=== PATIENT | male | born 1965 | race Caucasian/White ===

== ENCOUNTER 2019-04-06 18:26 | Inpatient (IN) ==
[2019-04-06] MEDS ORDERED: NORMAL SALINE 1,000 ML IV ONE ×3 (18:59→23:26)
[2019-04-06] MEDS ORDERED: LORazepam 2 MG/ML DISP.SYRIN IV ONE ×3 (18:59→20:53)
--- NOTE | 2019-04-06 19:18 | ERNOTE ---
<Lionel Johnson - Last Filed: 04/06/19 19:24> Medical Problem HPI - Narrative Date of Service: 04/06/19 - General Chief Complaint: Nausea/Vomiting Time Seen by Provider: 04/06/19 18:50 Source: patient, family Exam Limitations: no limitations - Immun/Allergies/Home Medications Immunizations: IMMUNIZATION HX Immunizations Up to Date Yes History of Influenza Vaccine Yes Hx Pneumococcal Vaccination No Allergies/Adverse Reactions: Allergies azithromycin Allergy (Verified 02/24/19 15:35) Hives Home Medications: HOME MEDICATIONS Atorvastatin Calcium 40 mg PO DAILY 11/30/18 [Last Taken Unknown] Buspirone HCl 30 mg PO BID 11/30/18 [Last Taken Unknown] Diphenoxylate HCl/Atrop Sulf [Lomotil] 2.5 mg PO QID PRN #40 tab 11/30/18 [Last Taken Unknown] Fluticasone Propion/Salmeterol [Advair 500-50 Diskus] 1 puff INHALATION BID 11/30/18 [Last Taken Unknown] Fluticasone Propionate [Flonase] 1 spray NS DAILY 11/30/18 [Last Taken Unknown] Lisinopril [Prinivil] 10 mg PO DAILY 11/30/18 [Last Taken Unknown] Montelukast Sodium [Singulair] 10 mg PO HS 11/30/18 [Last Taken Unknown] Ondansetron [Zofran Odt] 4 mg PO Q6H PRN #20 tab 11/30/18 [Last Taken Unknown] Pantoprazole Sodium 40 mg PO HS 11/30/18 [Last Taken Unknown] traZODone HCL [Trazodone HCl] 400 mg PO HS 11/30/18 [Last Taken Unknown] - History of Present History Narrative: patient presents to ed with c/o alcohol withdrawal, long hx of alcoholism, was in care [facility] at [facility] on monday for fluids and detox, left [facility], relates he left [facility]. haddad not had drink since monday Timing: constant, getting worse Severity: moderate Modifying Factors - (Improves): Present: other - nothing Modifying Factors - (Worsens): Present: other - nothing Review of Systems - Review of Systems Constitutional: Present: See HPI, weakness, fatigue, malaise EYE: Present: no symptoms reported ENT: Present: no symptoms reported Respiratory: Present: no symptoms reported Cardiology: Present: no symptoms reported Gastrointestinal/Abdominal: Present: See HPI, nausea, vomiting, diarrhea, eating less, drinking less Genitourinary: Present: no symptoms reported Musculoskeletal: Present: no symptoms reported Skin: Present: no symptoms reported Neurological: Present: no symptoms reported Endocrine: Present: no symptoms reported Hematologic/Lymphatic: Present: no symptoms reported Psych: Present: no symptoms reported All Other Systems: All systems neg except as marked Medical History (Updated 03/27/19 @ 00:00 by ) Anxiety COPD (chronic obstructive pulmonary disease) Depression Foot fracture, right GERD (gastroesophageal reflux disease) Hypertension Rheumatoid arthritis Spontaneous pneumothorax Surgical History: Surgical History (Updated 11/30/18 @ 10:37 by Marilou Pace RN) History of appendectomy Family History: Family History (Updated 11/30/18 @ 10:38 by Marilou Pace RN) Mother Social History: (Last Updated 04/06/19 @ 18:44 by Alessia Delgadillo RN) Tobacco: Smoking Status: Current every day smoker Alcohol: Alcohol type: beer, hard liquor alcohol intake frequency: 3 or more drinks per day Substance Use: substance use type: does not use Physical Exam - Physical Exam General Appearance: Present: severe distress, anxious Head Exam: Present: normal inspection, no evidence of injury Eye Exam: Normal inspection: bilateral, PERRL: bilateral, EOMI: bilateral Ears, Nose, Throat: Present: normal ENT inspection, normal pharynx Neck: Present: normal inspection, nontender Respiratory: Present: no respiratory distress, normal breath sounds, no accessory muscle use, chest nontender, lungs clear Cardiovascular/Chest: Present: regular rate, rhythm, no murmur, normal peripheral pulses Gastrointestinal/Abdominal: Present: normal bowel sounds, nontender, nondistended, soft, no organomegaly Back Exam: Present: normal inspection, normal range of motion, no CVA tenderness, no vertebral tenderness Extremity Exam: Present: normal inspection, non-tender, normal range of motion, no edema Neurological Exam: Present: alert, oriented, normal mood/affect, no motor/sensory deficits Skin Exam: Present: normal color, warm/dry Lymphatic Exam: Present: no adenopathy Progress - Vital Signs Vital Signs: Vital Signs 04/06/19 18:31 Temperature 36.9 C Pulse Rate 121 H Respiratory Rate 18 Blood Pressure 153/100 H O2 Sat by Pulse Oximetry 95 - Progress/Reassessment Chief Complaint: Nausea/Vomiting - Transfer of Care Physician Sign Out: Lionel Johnson Receiving Physician: Lico Arredondo Expected Disposition: Admit Plan - Plan Plan: to be admitted Departure Clinical Impression: Alcohol abuse, Acute renal insufficiency Pancreatitis Qualifiers: Chronicity: acute Pancreatitis type: alcohol induced Acute pancreatitis compl ication: unspecified Qualified Code(s): K85.20 - Alcohol induced acute pancreatitis without necrosis or infection - Departure Disposition: Still a patient Condition: Stable Referrals: Ever Garcia DO [Primary Care Provider] - <Lico Arredondo - Last Filed: 04/06/19 21:03> Medical Problem HPI - Immun/Allergies/Home Medications Immunizations: IMMUNIZATION HX Immunizations Up to Date Yes History of Influenza Vaccine Yes Hx Pneumococcal Vaccination No Medical History (Updated 03/27/19 @ 00:00 by ) Anxiety COPD (chronic obstructive pulmonary disease) Depression Foot fracture, right GERD (gastroesophageal reflux disease) Hypertension Rheumatoid arthritis Spontaneous pneumothorax Surgical History: Surgical History (Updated 11/30/18 @ 10:37 by Marilou Pace RN) History of appendectomy Family History: Family History (Updated 11/30/18 @ 10:38 by Marilou Pace RN) Mother Social History: (Last Updated 04/06/19 @ 18:44 by Alessia Delgadillo RN) Tobacco: Smoking Status: Current every day smoker Alcohol: Alcohol type: beer, hard liquor alcohol intake frequency: 3 or more drinks per day Substance Use: substance use type: does not use Progress - Results and Orders Patient's Lab Results:: I have reviewed the patient's lab results. - Vital Signs Patient's Vital Signs:: I have reviewed the patient's vital signs. Vital Signs: Vital Signs 04/06/19 18:31 04/06/19 19:14 04/06/19 19:53 Temperature 36.9 C Pulse Rate 121 H 96 101 H Respiratory Rate 18 24 H 15 Blood Pressure 153/100 H 148/100 H 155/100 H O2 Sat by Pulse Oximetry 95 98 96 04/06/19 20:10 04/06/19 20:48 Temperature Pulse Rate 101 H 112 H Respiratory Rate 16 16 Blood Pressure 155/103 H 158/103 H O2 Sat by Pulse Oximetry 96 96 - X-Ray X-Ray #1 X-Ray: abdomen Interpretation: Interp. by me Plan - Plan Plan: I took over patient care at 7:30 PM. Patient was waiting on labs. His labs have returned with pancreatitis. He has transaminitis. He has become tachycardic and tremulous. He is been given 3 mg of Ativan. She has some mild acute renal insufficiency. Given a liter and a half of saline so far. Patient has acute pancreatitis, impending DTs, acute renal failure, alcohol withdrawal. Spoke with Dr. Rolo Shearer and will admit to the hospital. Put on CIWA protocol. No further tests at this time. Patient seems to be willing to try a detox
[2019-04-06 19:38] LABS: Hematocrit 35.7 % (42.0-52.0); Hemoglobin 12.4 gm/dL (13.5-18.0); Mean Cell Volume 101.7 fl (78-100); Mean Corpuscular Hemoglobin 35.3 pg (27-31); Mean Corpuscular Hgb Conc 34.7 g/dl (32-36); Mean Platelet Volume 10.4 fl (8-11.3); Neutrophil # 3.6 K/mm3 (1.3-6.0); Neutrophil % 76.7 % (42-75.0); Platelet Count 57 K/mm3 (150-450); Red Blood Count 3.51 M/mm3 (4.7-6.0); White Blood Count 4.7 K/mm3 (4.0-10.5)
[2019-04-06 19:44] LABS: Anion Gap 31.7 mmol/L (6.8-13.8); BUN/Creatinine Ratio 20.5 (9.0-21.6); Bilirubin, Total 1.4 mg/dL (0.0-1.1); Ca. Corrected For Albumin 8.1 mg/dL (8.4-10.2); Calcium * 8.4 mg/dL (7.9-10.9); Potassium 3.7 mmol/L (3.4-4.6); Total Protein 7.3 gm/dL (6.2-8.2)
[2019-04-06] MEDS: MULTIVIT INFUSN,ADULT 4,VIT K 10 ML, THIAMINE HCL 100 MG in NORMAL SALINE 1,000 ML IV SCH (19:49)
[2019-04-06] MEDS ORDERED: ONDANSETRON HCL/PF 2 MG/ML VIAL IV PRN (20:59)
[2019-04-06] MEDS ORDERED: MORPHINE SULFATE 2 MG/ML DISP.SYRIN IV PRN (21:00)
[2019-04-06] MEDS ORDERED: ENOXAPARIN SODIUM 40 MG/0.4 ML SYRG SC SCH (22:00)
--- NOTE | 2019-04-06 22:22 | HP ---
Chief Complaint - Chief Complaint Date of Service: 04/06/19 Time of Service: 22:21 Chief Complaint: I am drunk and my stomach hurts History of Present Illness: 53-year-old male with past medical history of anxiety disorder, COPD, depression, GERD, hypertension, and rheumatoid arthritis was evaluated in our ER due to signs and symptoms of alcohol intoxication versus alcohol withdrawal. Patient has an extensive 30+ year history of alcoholism and drinks up to 5 drinks per day of mostly vodka. He reports his last drink was 5 days ago, however his sister contradicts that and says he attempted to drink earlier today but has not been able to keep anything down. Patient was noted to be belligerent and not talking clearly, and also presented tremors indicating possible withdrawal from alcohol. However blood alcohol levels are elevated so it is possible that patient is currently intoxicated. Patient was seen at [facility] earlier this week for similar symptoms however all labs and imaging were negative for any concerning findings besides his chronic alcoholism according to his sister. He also had a reported fall on Monday and his home falling onto his left side and injuring his left flank. Medical History (Updated 04/06/19 @ 22:46 by Angelita Figueroa MD) Anxiety COPD (chronic obstructive pulmonary disease) Depression Foot fracture, right GERD (gastroesophageal reflux disease) Hypertension Rheumatoid arthritis Spontaneous pneumothorax Surgical History: Surgical History (Updated 04/06/19 @ 22:22 by Angelita Figueroa MD) History of appendectomy Family History: Family History (Updated 11/30/18 @ 10:38 by Marilou Pace RN) Mother Social History: (Last Updated 04/06/19 @ 21:57 by Cyndi Jack RN) Social History: Marital status: Single lives independently: No household members: family current occupational status: unemployed Tobacco: Smoking Status: Current every day smoker Alcohol: Alcohol type: beer, hard liquor alcohol intake frequency: 3 or more drinks per day Substance Use: substance use type: does not use Dietary Habits: well-balanced diet: daily or most days Keren/Yazdanism: keren/restorationism: Agnostic Peds Patient Hx - Developmental: No Pertinent Hx Peds Patient Hx - Medical: No Pertinent Hx Peds Patient Hx - Cardiac/Respiratory: No Pertinent Hx Peds Patient Hx - Surgical: No Surgical History Patient History - Cancer: No Hx of Cancer Review Of Systems (GEN) - Review of Systems Generalized/Overall Review: Present: Diaphoresis EENTM: Present: No Symptoms Reported Respiratory: Present: Other - Persistent hiccups Cardiac: Present: No Symptoms Reported Abdominal: Present: Nausea, Vomiting, Abdominal Pain Genitourinary: Present: No Symptoms Reported Musculoskeletal: Present: Joint Pain - Bilateral knee pain due to rheumatoid arthritis Neurological: Present: Anxiety, Tremors, Weakness Skin: Present: No Symptoms Reported Endocrine: Present: No Symptoms Reported Immunizations: IMMUNIZATION HX Immunizations Up to Date Yes History of Influenza Vaccine Yes Hx Pneumococcal Vaccination No Allergies/Adverse Reactions: Allergies Allergy/AdvReac Type Severity Reaction Status Date / Time azithromycin Allergy Hives Verified 02/24/19 15:35 Home Medications: HOME MEDICATIONS Atorvastatin Calcium 40 mg PO DAILY 11/30/18 [Last Taken Unknown] Buspirone HCl 30 mg PO BID 11/30/18 [Last Taken Unknown] Diphenoxylate HCl/Atrop Sulf [Lomotil] 2.5 mg PO QID PRN #40 tab 11/30/18 [Last Taken Unknown] Fluticasone Propion/Salmeterol [Advair 500-50 Diskus] 1 puff INHALATION BID 11/30/18 [Last Taken Unknown] Fluticasone Propionate [Flonase] 1 spray NS DAILY 11/30/18 [Last Taken Unknown] Lisinopril [Prinivil] 10 mg PO DAILY 11/30/18 [Last Taken Unknown] Montelukast Sodium [Singulair] 10 mg PO HS 11/30/18 [Last Taken Unknown] Ondansetron [Zofran Odt] 4 mg PO Q6H PRN #20 tab 11/30/18 [Last Taken Unknown] Pantoprazole Sodium 40 mg PO HS 11/30/18 [Last Taken Unknown] traZODone HCL [Trazodone HCl] 400 mg PO HS 11/30/18 [Last Taken Unknown] Exam - Exam Vital Signs: Vital Signs - Last Taken Temp 36.9 C 04/06/19 18:31 Pulse 114 H 04/06/19 21:14 Resp 19 04/06/19 21:14 BP 167/108 H 04/06/19 21:14 Pulse Ox 96 04/06/19 21:14 Constitutional: Present: Alert, Cooperative, Well developed, No distress, Lethargic, Looks Older than stated age ENT Exam: Present: normal ENT inspection, hearing grossly normal, pharynx normal, TMs normal Eye Exam: bilateral eye: normal inspection, PERRL, EOMI Neck: Present: non-tender, full range of motion, supple, normal inspection, trachea midline Back Exam: Present: normal inspection, no CVA tenderness, no vertebral tenderness, other - Small resolving hematoma on left upper back/left flank Respiratory: Present: chest non-tender, lungs clear, normal breath sounds, no respiratory distress, no accessory muscle use Cardiovascular/Chest: Present: normal peripheral pulses, regular rate, rhythm, no chest tenderness, no edema, no gallop, no JVD, no murmur, no rub Peripheral Pulses: carotid (R): 3+, carotid (L): 3+, femoral (R): 3+, femoral (L): 3+, dorsalis-pedis (R): 3+, dorsalis-pedis (L): 3+ Abdomen: Present: Normal bowel sounds, soft, nondistended, no masses, tender - Diffuse tenderness on palpation, rebound tenderness /Rectal: Present: Exam deferred Extremity: Present: normal range of motion, non-tender, normal inspection, no pedal edema, no calf tenderness, normal capillary refill Skin Exam: Present: normal color, warm/dry, no cyanosis Lymphatic: Present: no adenopathy Neurologic: Present: no motor/sensory deficits, alert, depressed affect, disoriented x 3 Appearance: Present: disheveled, impaired insight, impaired recent memory, impaired remote memory Eye contact: Present: cooperative, good eye contact, normal speech Thoughts: Present: auditory hallucinations, tactile hallucinations, visual hallucinations Diagnostic Studies: Abnormal Lab Results 04/06/19 04/06/19 Range/Units 19:30 19:30 RBC 3.51 L (4.7-6.0) M/mm3 Hgb 12.4 L (13.5-18.0) gm/dL Hct 35.7 L (42.0-52.0) % MCV 101.7 H (78-100) fl MCH 35.3 H (27-31) pg RDW 15.0 H (11.5-14.0) % Plt Count 57 L (150-450) K/mm3 Neutrophils % 76.7 H (42-75.0) % Lymphocytes % 10.7 L (20-51) % Monocytes % 12.2 H (0.0-9) % Lymphocytes # 0.50 L (1.5-3.5) k/mm3 Chloride 95 L (97-106) mmol/L Carbon Dioxide 18.0 L (24-32.6) mmol/L Anion Gap 31.7 H (6.8-13.8) mmol/L BUN 38 H (6-23) mg/dL Creatinine 1.85 H (0.4-1.4) mg/dL Est GFR (Non-Af Amer) 41 L (60-130) mL/min Calcium Adj for Albumin 8.1 L (8.4-10.2) mg/dL Total Bilirubin 1.4 H (0.0-1.1) mg/dL AST 237 H (0-48) U/L ALT 119 H (19-67) U/L Amylase 506 H (25-115) U/L Lipase 7892 H (73-393) U/L Ethyl Alcohol 23.0 H (0.0-10.0) mg/dL Laboratory Results WBC 4.7 K/mm3 (4.0-10.5) 04/06/19 19:30 RBC 3.51 M/mm3 (4.7-6.0) L 04/06/19 19:30 Hgb 12.4 gm/dL (13.5-18.0) L 04/06/19 19:30 Hct 35.7 % (42.0-52.0) L 04/06/19 19:30 MCV 101.7 fl (78-100) H 04/06/19 19:30 MCH 35.3 pg (27-31) H 04/06/19 19:30 MCHC 34.7 g/dl (32-36) 04/06/19 19:30 RDW 15.0 % (11.5-14.0) H 04/06/19 19:30 Plt Count 57 K/mm3 (150-450) L 04/06/19 19:30 MPV 10.4 fl (8-11.3) 04/06/19 19:30 Immature Gran % (Auto) 0.20 % (0.001-0.429) 04/06/19 19:30 Immature Gran # (Auto) 0.01 K/mm3 (0.000-0.0310) 04/06/19 19:30 76.7 % (42-75.0) H 04/06/19 19:30 10.7 % (20-51) L 04/06/19 19:30 12.2 % (0.0-9) H 04/06/19 19:30 0.0 % (0.0-3.0) 04/06/19 19:30 0.2 % (0.0-1.0) 04/06/19 19:30 Nucleated RBC % 0.0 k/mm3 (0-1) 04/06/19 19:30 3.6 K/mm3 (1.3-6.0) 04/06/19 19:30 0.50 k/mm3 (1.5-3.5) L 04/06/19 19:30 0.6 k/mm3 (0.0-1.0) 04/06/19 19:30 0.0 k/mm3 (0.0-0.7) 04/06/19 19:30 Absolute Basophils 0.0 k/mm3 (0.0-0.1) 04/06/19 19:30 Sodium 141 mmol/L (132-142) 04/06/19 19:30 141 mmol/L (130-142) 04/06/19 19:30 Potassium 3.7 mmol/L (3.4-4.6) 04/06/19 19:30 Chloride 95 mmol/L (97-106) L 04/06/19 19:30 Carbon Dioxide 18.0 mmol/L (24-32.6) L 04/06/19 19:30 31.7 mmol/L (6.8-13.8) H 04/06/19 19:30 BUN 38 mg/dL (6-23) H 04/06/19 19:30 1.85 mg/dL (0.4-1.4) H 04/06/19 19:30 Est GFR (Non-Af Amer) 41 mL/min (60-130) L 04/06/19 19:30 20.5 (9.0-21.6) 04/06/19 19:30 86 mg/dL (70-110) 04/06/19 19:30 Calcium 8.4 mg/dL (7.9-10.9) 04/06/19 19:30 Calcium Adj for Albumin 8.1 mg/dL (8.4-10.2) L 04/06/19 19:30 Magnesium 1.7 mg/dL (1.2-2.8) 04/06/19 21:38 1.4 mg/dL (0.0-1.1) H 04/06/19 19:30 AST 237 U/L (0-48) H 04/06/19 19:30 ALT 119 U/L (19-67) H 04/06/19 19:30 87 U/L (50-170) 04/06/19 19:30 7.3 gm/dL (6.2-8.2) 04/06/19 19:30 4.0 gm/dl (3.4-5.0) 04/06/19:30 Amylase 506 U/L (25-115) H 04/06/19 19:30 7892 U/L (73-393) H 04/06/19 19:30 Ethyl Alcohol 23.0 mg/dL (0.0-10.0) H 04/06/19 19:30 Assessment/Plan - Narrative Narrative: Patient was evaluated and medical chart was reviewed and decision to admit for inpatient management on our medical surgical max was made. Patient was admitted with a diagnosis of alcohol withdrawal. We will manage him with alcohol withdrawal protocol which consist of anxiolytics to be used on a as needed basis, we have also placed him on telemetry monitoring as well as seizure precautions. As of yet patient has not presented fever however currently he is presenting tremors and is delirious. He seems to be presenting auditory and visual hallucinations so we will continue to monitor him closely. In the meantime we are treating patient with aggressive IV hydration to treat his pancreatitis that was diagnosed with elevated pancreatic enzymes as well as significant epigastric pain and tenderness. Patient was also found to have transaminitis with elevated liver enzymes indicating inflammation of the liver due to his excessive drinking. Patient has been in and out of rehab for multiple years for his alcoholism but has not been able to maintain his sobriety. He reports that his last drink was 5 days ago however his sister says that he did attempt to drink earlier today but threw everything up. Patient did have an elevated ethanol levels on labs done in the ER. Nevertheless precautions for alcohol withdrawal were placed, and patient was administered multiple doses of Ativan while in the ER. Now he is calm but tremulous has been placed on n.p.o., and has morphine and anxiolytics ordered on a as needed basis. We will continue to monitor him closely. Follow-up labs have been ordered for reevaluation in the morning. - Assessment/Plan (1) Alcohol abuse Problem: Chronic (2) Acute pancreatitis Problem: Acute (3) Alcohol withdrawal Problem: Acute Qualifiers: Complication of substance-induced condition: with delirium Qualified Code(s): F10.231 - Alcohol dependence with withdrawal delirium (4) Autonomic dysfunction Problem: Acute (5) Hypertension Problem: Acute Qualifiers: Hypertension type: other secondary hypertension Qualified Code(s): I15.8 - Other secondary hypertension (6) Tachycardia Problem: Acute (7) Alcoholism Problem: Chronic (8) Delirium due to another medical condition Problem: Acute (9) Acute kidney injury superimposed on CKD Problem: Chronic
[2019-04-07] MEDS: FAMOTIDINE 20 MG in DEXTROSE 5 % IN WATER 100 ML IV SCH ×6 (00:14→21:40)
[2019-04-07] MEDS: busPIRone HCL 5 MG TABLET PO SCH ×3 (00:24→21:38)
[2019-04-07] MEDS: traZODone HCL 50 MG TABLET PO SCH ×2 (00:27→21:37)
[2019-04-07] MEDS: traZODone HCL 150 MG TABLET PO SCH ×2 (00:27→21:37)
[2019-04-07] MEDS: METOPROLOL TARTRATE 25 MG TABLET PO SCH ×3 (00:28→21:37)
[2019-04-07] MEDS: POTASSIUM CHLORIDE 20 MEQ in DEXTROSE 5%-0.5 NORMAL SALINE 990 ML IV SCH ×3 (02:21→16:44)
[2019-04-07 06:37] LABS: Albumin * 3.4 gm/dl (3.4-5.0); BUN/Creatinine Ratio 20.5 (9.0-21.6); Bilirubin, Total 1.2 mg/dL (0.0-1.1); Ca. Corrected For Albumin 7.5 mg/dL (8.4-10.2); Calcium * 7.3 mg/dL (7.9-10.9); Carbon Dioxide 22.6 mmol/L (24-32.6); Potassium 3.6 mmol/L (3.4-4.6); Total Protein 6.4 gm/dL (6.2-8.2)
[2019-04-07 06:42] LABS: Hematocrit 31.5 % (42.0-52.0); Mean Cell Volume 100.6 fl (78-100); Mean Corpuscular Hemoglobin 35.1 pg (27-31); Mean Corpuscular Hgb Conc 34.9 g/dl (32-36); Mean Platelet Volume 10.8 fl (8-11.3); Neutrophil # 2.3 K/mm3 (1.3-6.0); Neutrophil % 67.2 % (42-75.0); Platelet Count 36 K/mm3 (150-450); Red Blood Count 3.13 M/mm3 (4.7-6.0); Red Cell Distribution Width 14.7 % (11.5-14.0); White Blood Count 3.5 K/mm3 (4.0-10.5)
[2019-04-07 07:21] LABS: Urine Bilirubin 1 mg/dl (NEGATIVE); Urine Blood 50 /ul (NEGATIVE); Urine Ketone 50 mg/dL (NEGATIVE); Urine Nitrite Negative (NEGATIVE); Urine Protein 30 mg/dL (NEGATIVE); Urine Urobilinogen Normal (NORMAL); Urine pH 6.5 pH (5.0-7.0)
[2019-04-07 07:37] LABS: Urine Appearance Clear (CLEAR); Urine Color Yellow
[2019-04-07 07:38] LABS: Urine WBC None Seen /hpf (0-5)
[2019-04-07 07:44] LABS: Urine Bacteria 1+; Urine RBC 0-5 /hpf (0-5)
[2019-04-07 07:59] LABS: Cocaine Ur Negative (NEGATIVE); Urine Barbiturate Negative (NEGATIVE); Urine Benzodiazepines Negative (NEGATIVE); Urine Opiates Negative (NEGATIVE); Urine PCP Negative (NEGATIVE); Urine THC Negative (NEGATIVE)
[2019-04-07] MEDS: THIAMINE HCL 100 MG/ML VIAL IM SCH (09:11)
[2019-04-07] MEDS: CALCIUM CARBONATE 500 MG TAB.CHEW PO SCH ×2 (09:12→21:38)
[2019-04-07] MEDS: FOLIC ACID 1 MG TABLET PO SCH (09:12)
[2019-04-07] MEDS: MULTIVITAMINS 1 CAP CAPSULE PO SCH (09:12)
[2019-04-07] MEDS: ROSUVASTATIN CALCIUM 20 MG TABLET PO SCH (09:13)
[2019-04-07] MEDS: LISINOPRIL 10 MG TABLET PO SCH (09:13)
[2019-04-07] MEDS: DOCUSATE SODIUM 100 MG CAPSULE PO SCH ×2 (09:13→21:35)
[2019-04-07] MEDS: FLUTICASONE PROPION/SALMETEROL 14 PUFF DISK.W.DEV IH SCH ×2 (09:38→21:34)
[2019-04-07] MEDS: FLUTICASONE PROPIONATE 120 SPRAY INHALER NS SCH (09:38)
[2019-04-07] MEDS: chlordiazePOXIDE HCL 25 MG CAPSULE PO PRN ×2 (10:40→21:40)
--- NOTE | 2019-04-07 14:00 | PN ---
Subjective - Date and Time Seen Date: 04/07/19 Time: 13:47 Subjective Narrative: I feel better and feel more awake. Objective Objective Narrative: 53-year-old male admitted for alcohol withdrawal and chronic alcoholis m was evaluated at bedside was found to be afebrile and in no acute distress. Patient shows clinical improvement since arriving to our floors, this morning he appears more lucid and is fully awake and is able to respond to questioning with coherent speech and thoughts. Upon questioning patient reports that he has been depressed over the past few days which led him to drinking once again. He was diagnosed with acute pancreatitis secondary to his drinking upon admission and has been treated with aggressive IV hydration which is still ongoing and has been monitored with repeat amylase and lipase levels which has demonstrated improvement this morning. Patient's liver enzymes are also improving which is a sign that we are going in the right direction. He still presents tremors and scored 15 on the CIWA scale today, therefore Ativan was once again administered. Since then the patient is more relaxed and the tremors have resolved. No seizures have been reported by nursing staff. We will apply a nicotine patch to help with his smoking cessation and to cover his dependence on nicotine. - Review of Systems Generalized/Overall Review: Reports: No Symptoms Reported EENTM: Reports: No Symptoms Reported Respiratory: Reports: No Symptoms Reported Cardiac: Reports: No Symptoms Reported Abdominal: Reports: No Symptoms Reported Genitourinary Symptoms: Reports: No Symptoms Reported Musculoskeletal Complaints: Reports: No Symptoms Reported Neurological: Reports: Anxiety, Tremors, Weakness Skin: Reports: No Symptoms Reported Endocrine: Reports: No Symptoms Reported - Vitals Vitals: Last Vital Signs Temp 36.8 C 04/07/19 10:29 Pulse 90 04/07/19 10:29 Resp 20 04/07/19 10:29 BP 164/100 H 04/07/19 10:29 Pulse Ox 91 L 04/07/19 10:29 - Abnormal Lab Findings Abnormal Lab Findings: Abnormal Lab Results 04/06/19 04/06/19 04/07/19 Range/Units 19:30 19:30 06:09 WBC 3.5 L D (4.0-10.5) K/mm3 RBC 3.51 L 3.13 L (4.7-6.0) M/mm3 Hgb 12.4 L 11.0 L (13.5-18.0) gm/dL Hct 35.7 L 31.5 L (42.0-52.0) % MCV 101.7 H 100.6 H (78-100) fl MCH 35.3 H 35.1 H (27-31) pg RDW 15.0 H 14.7 H (11.5-14.0) % Plt Count 57 L 36 L (150-450) K/mm3 Neutrophils % 76.7 H (42-75.0) % Lymphocytes % 10.7 L 17.1 L (20-51) % Monocytes % 12.2 H 14.8 H (0.0-9) % Lymphocytes # 0.50 L 0.59 L (1.5-3.5) k/mm3 Chloride 95 L (97-106) mmol/L Carbon Dioxide 18.0 L (24-32.6) mmol/L Anion Gap 31.7 H (6.8-13.8) mmol/L BUN 38 H (6-23) mg/dL Creatinine 1.85 H (0.4-1.4) mg/dL Est GFR (Non-Af Amer) 41 L (60-130) mL/min Random Glucose (70-110) mg/dL Calcium (7.9-10.9) mg/dL Calcium Adj for Albumin 8.1 L (8.4-10.2) mg/dL Total Bilirubin 1.4 H (0.0-1.1) mg/dL AST 237 H (0-48) U/L ALT 119 H (19-67) U/L Amylase 506 H (25-115) U/L Lipase 7892 H (73-393) U/L Urine Protein (NEGATIVE) mg/dL Urine Blood (NEGATIVE) /ul Urine Bilirubin (NEGATIVE) mg/dl Urine Ictotest (NEGATIVE) Urine Bacteria (NONE) Ethyl Alcohol 23.0 H (0.0-10.0) mg/dL 04/07/19 04/07/19 Range/Units 06:09 07:07 WBC (4.0-10.5) K/mm3 RBC (4.7-6.0) M/mm3 Hgb (13.5-18.0) gm/dL Hct (42.0-52.0) % MCV (78-100) fl MCH (27-31) pg RDW (11.5-14.0) % Plt Count (150-450) K/mm3 Neutrophils % (42-75.0) % Lymphocytes % (20-51) % Monocytes % (0.0-9) % Lymphocytes # (1.5-3.5) k/mm3 Chloride (97-106) mmol/L Carbon Dioxide 22.6 L (24-32.6) mmol/L Anion Gap 19.0 H (6.8-13.8) mmol/L BUN 35 H (6-23) mg/dL Creatinine 1.71 H (0.4-1.4) mg/dL Est GFR (Non-Af Amer) 45 L (60-130) mL/min Random Glucose 159 H D (70-110) mg/dL Calcium 7.3 L (7.9-10.9) mg/dL Calcium Adj for Albumin 7.5 L (8.4-10.2) mg/dL Total Bilirubin 1.2 H (0.0-1.1) mg/dL AST 201 H (0-48) U/L ALT 95 H (19-67) U/L Amylase 358 H (25-115) U/L Lipase 5313 H (73-393) U/L Urine Protein 30 H (NEGATIVE) mg/dL Urine Blood 50 H (NEGATIVE) /ul Urine Bilirubin 1 H (NEGATIVE) mg/dl Urine Ictotest Positive H (NEGATIVE) Urine Bacteria 1+ H (NONE) Ethyl Alcohol (0.0-10.0) mg/dL - Exam Constitutional: Present: Alert, Oriented x3, Well developed, No distress, Looks Older than stated age ENT Exam: Present: normal ENT inspection, hearing grossly normal, pharynx normal, TMs normal Neck: Present: non-tender, full range of motion, supple, normal inspection, trachea midline Breasts: Present: Exam deferred Respiratory: Present: chest non-tender, lungs clear, normal breath sounds, no respiratory distress, no accessory muscle use Cardiovascular/Chest: Present: normal peripheral pulses, regular rate, rhythm, no chest tenderness, no edema, no gallop, no JVD, no murmur, no rub Abdomen: Present: Normal bowel sounds, soft, nondistended, no rebound tenderness, tender - Mild tenderness to palpatio in the periumbilical regionn and right upper quadrant /Rectal: Present: Exam deferred Extremity: Present: normal range of motion, non-tender, normal inspection, no pedal edema, no calf tenderness Skin Exam: Present: normal color, warm/dry, no cyanosis Lymphatic: Present: no adenopathy Neurologic: Present: no motor/sensory deficits, alert, depressed affect Appearance: Present: appropriate insight, no memory impairment, disheveled Eye contact: Present: cooperative, avoids eye contact Thoughts: Present: normal thought pattern Assessment/Plan Plan Narrative: Patient was found to have worsening thrombocytopenia on labs this is likely secondary to folate deficiency which is common and chronic alcoholism. Folate supplement has been ordered to replenish him. When asked the patient does not recall ever being told that he is thrombocytopenic and he denies any signs or symptoms of recurrent bleeding however he does say he occasionally has a small amount of bleeding when he wipes himself after a BM. During the hospitalization there has been no signs or symptoms of bleeding but we will put the patient on watch for any bleeding. Follow-up lab has been ordered for the morning to reeva luate pancreatic and liver enzymes as well as platelet levels. We will continue to keep him on seizure precautions and telemetry to monitor him. - Problems/Diagnosis (1) Alcohol abuse Problem: Chronic (2) Acute pancreatitis Problem: Acute (3) Alcohol withdrawal Problem: Acute Qualifiers: Complication of substance-induced condition: with delirium Qualified Code(s): F10.231 - Alcohol dependence with withdrawal delirium (4) Autonomic dysfunction Problem: Acute (5) Hypertension Problem: Acute Qualifiers: Hypertension type: other secondary hypertension Qualified Code(s): I15.8 - Other secondary hypertension (6) Tachycardia Problem: Acute (7) Alcoholism Problem: Chronic (8) Delirium due to another medical condition Problem: Acute (9) Acute kidney injury superimposed on CKD Problem: Chronic (10) Thrombocytopenia Problem: Acute (11) Tremors of nervous system Problem: Acute (12) Occasional tremors Problem: Acute
[2019-04-07] MEDS: ACETAMINOPHEN 325 MG TABLET PO PRN (14:43)
[2019-04-07] MEDS: NICOTINE 21 MG PATC TD SCH (14:46)
[2019-04-07] MEDS: MULTIVIT INFUSN,ADULT 4,VIT K 10 ML, THIAMINE HCL 100 MG in NORMAL SALINE 1,000 ML IV SCH (19:30)
[2019-04-07] MEDS: MONTELUKAST SODIUM 10 MG TABLET PO SCH (21:38)
[2019-04-08] MEDS: POTASSIUM CHLORIDE 20 MEQ in DEXTROSE 5%-0.5 NORMAL SALINE 990 ML IV SCH ×4 (00:04→21:18)
[2019-04-08] MEDS: chlordiazePOXIDE HCL 25 MG CAPSULE PO PRN (03:43)
[2019-04-08 05:42] LABS: Hematocrit 32.8 % (42.0-52.0); Hemoglobin 11.4 gm/dL (13.5-18.0); Mean Cell Volume 100.6 fl (78-100); Mean Corpuscular Hgb Conc 34.8 g/dl (32-36); Mean Platelet Volume 11.1 fl (8-11.3); Neutrophil # 3.4 K/mm3 (1.3-6.0); Neutrophil % 69.9 % (42-75.0); Red Blood Count 3.26 M/mm3 (4.7-6.0); Red Cell Distribution Width 14.5 % (11.5-14.0); White Blood Count 4.8 K/mm3 (4.0-10.5)
[2019-04-08 06:12] LABS: Albumin * 2.9 gm/dl (3.4-5.0); Anion Gap 11.7 mmol/L (6.8-13.8); BUN/Creatinine Ratio 17.2 (9.0-21.6); Bilirubin, Total 1.5 mg/dL (0.0-1.1); Ca. Corrected For Albumin 8.1 mg/dL (8.4-10.2); Calcium * 7.5 mg/dL (7.9-10.9); Carbon Dioxide 26.6 mmol/L (24-32.6); Potassium 3.3 mmol/L (3.4-4.6); Total Protein 5.8 gm/dL (6.2-8.2)
[2019-04-08 06:20] LABS: Platelet Count 28 K/mm3 (150-450)
[2019-04-08] MEDS ORDERED: POTASSIUM CHLORIDE 20 MEQ TABLET.SA PO ONE (06:43)
[2019-04-08 06:45] LABS: CRP 6.8 mg/dL (0.0-0.9)
[2019-04-08] MEDS: FLUTICASONE PROPION/SALMETEROL 14 PUFF DISK.W.DEV IH SCH ×2 (07:05→21:19)
[2019-04-08 07:25] LABS: Total Cells Counted 100
[2019-04-08 08:14] LABS: Atypical (Reactive) Lymph 7 % (0-2); Band 7 % (0-2.0); Eosinophil 1 % (0-3); Lymphocyte 18 % (20-51); Monocyte 5 % (0-9); Neutrophil 62 % (42-75)
[2019-04-08 08:19] LABS: Microcytosis 1+; Platelet Estimate Decreased (NORMAL)
[2019-04-08 08:21] LABS: Tear Drop Cells Trace
[2019-04-08 08:23] LABS: Schistocytes Trace
[2019-04-08] MEDS: DOCUSATE SODIUM 100 MG CAPSULE PO SCH ×2 (09:05→21:20)
[2019-04-08] MEDS: CALCIUM CARBONATE 500 MG TAB.CHEW PO SCH ×2 (09:05→21:20)
[2019-04-08] MEDS: FOLIC ACID 1 MG TABLET PO SCH (09:05)
[2019-04-08] MEDS: MULTIVITAMINS 1 CAP CAPSULE PO SCH (09:05)
[2019-04-08] MEDS: busPIRone HCL 5 MG TABLET PO SCH ×2 (09:05→21:20)
[2019-04-08] MEDS: THIAMINE HCL 100 MG/ML VIAL IM SCH (09:06)
[2019-04-08] MEDS: METOPROLOL TARTRATE 25 MG TABLET PO SCH (09:06)
[2019-04-08] MEDS: ROSUVASTATIN CALCIUM 20 MG TABLET PO SCH (09:06)
[2019-04-08] MEDS: LISINOPRIL 10 MG TABLET PO SCH (09:07)
[2019-04-08] MEDS: FLUTICASONE PROPIONATE 120 SPRAY INHALER NS SCH (09:07)
[2019-04-08] MEDS: LORazepam 2 MG/ML DISP.SYRIN IV PRN ×3 (09:21→18:40)
[2019-04-08] MEDS: FAMOTIDINE 20 MG in DEXTROSE 5 % IN WATER 100 ML IV SCH ×4 (11:32→21:49)
[2019-04-08] MEDS ORDERED: busPIRone HCL 5 MG TABLET PO ONE (12:30)
--- NOTE | 2019-04-08 12:48 | PN ---
Subjective - Date and Time Seen Date: 04/08/19 Time: 12:37 Subjective Narrative: I feel groggy. Objective Objective Narrative: 53-year-old male admitted for alcohol withdrawal and chronic alcoholism was evaluated at bedside was found to be afebrile and in no acute distress, however patient appeared groggy and had hallucinations where he kept referring to little girls running near his bed. His CIWA score this morning was 14 so he was administered Ativan according to protocol. Patient has not had any seizure activity and his tremors have improved. He was found to have worsening thrombocytopenia likely secondary to his chronic liver disease due to his alcoholism, repeat labs were ordered for tomorrow morning for reevaluation. His self and his sister denied any history of hematologic issues including thrombus cytopenia, but it was explained to him that he most likely has liver cirrhosis that is affecting the production of his platelets. Liver and pancreatic enzymes are on a downward trend. Patient's blood pressure was also found to be elevated so his metoprolol was increased to be administered twice a day. We will keep him on telemetry to continue watching him closely. In the meantime patient's d iet has been progressed, no nausea vomiting have been reported and he reports improvement of abdominal pain. - Review of Systems Generalized/Overall Review: Reports: No Symptoms Reported EENTM: Reports: No Symptoms Reported Respiratory: Reports: No Symptoms Reported Cardiac: Reports: No Symptoms Reported Abdominal: Reports: Abdominal Pain Genitourinary Symptoms: Reports: Incontinent Musculoskeletal Complaints: Reports: No Symptoms Reported Neurological: Reports: Emotional Problems, Tremors Skin: Reports: No Symptoms Reported Endocrine: Reports: No Symptoms Reported - Vitals Vitals: Last Vital Signs Temp 36.8 C 04/08/19 10:00 Pulse 70 04/08/19 10:00 Resp 20 04/08/19 10:00 BP 180/89 H 04/08/19 10:00 Pulse Ox 96 04/08/19 10:00 - Abnormal Lab Findings Abnormal Lab Findings: Abnormal Lab Results 04/08/19 04/08/19 04/08/19 Range/Units 05:55 05:55 06:00 RBC 3.26 L (4.7-6.0) M/mm3 Hgb 11.4 L (13.5-18.0) gm/dL Hct 32.8 L (42.0-52.0) % MCV 100.6 H (78-100) fl MCH 35.0 H (27-31) pg RDW 14.5 H (11.5-14.0) % Plt Count 28 L* (150-450) K/mm3 Band Neuts % (Manual) 7 H (0-2.0) % Lymphocytes % 19.1 L (20-51) % Lymphocytes % (Manual) 18 L (20-51) % Monocytes % 10.0 H (0.0-9) % Lymphocytes # 0.92 L (1.5-3.5) k/mm3 Lymphocytes # (Manual) 0.9 L (1.5-3.5) k/mm3 Atypic/Reactive Lymphs 7 H (0-2) % Platelet Estimate Decreased L (NORMAL) Retic Hgb Content 40.5 H (29-35) pg Potassium 3.3 L (3.4-4.6) mmol/L Random Glucose 148 H (70-110) mg/dL Calcium 7.5 L (7.9-10.9) mg/dL Calcium Adj for Albumin 8.1 L (8.4-10.2) mg/dL Total Bilirubin 1.5 H (0.0-1.1) mg/dL AST 212 H (0-48) U/L ALT 87 H (19-67) U/L Lactate Dehydrogenase (85-227) U/L C-Reactive Prot, Quant (0.0-0.9) mg/dL Total Protein 5.8 L (6.2-8.2) gm/dL Albumin 2.9 L (3.4-5.0) gm/dl Amylase 202 H (25-115) U/L Lipase 4267 H (73-393) U/L 04/08/19 Range/Units 06:23 RBC (4.7-6.0) M/mm3 Hgb (13.5-18.0) gm/dL Hct (42.0-52.0) % MCV (78-100) fl MCH (27-31) pg RDW (11.5-14.0) % Plt Count (150-450) K/mm3 Band Neuts % (Manual) (0-2.0) % Lymphocytes % (20-51) % Lymphocytes % (Manual) (20-51) % Monocytes % (0.0-9) % Lymphocytes # (1.5-3.5) k/mm3 Lymphocytes # (Manual) (1.5-3.5) k/mm3 Atypic/Reactive Lymphs (0-2) % Platelet Estimate (NORMAL) Retic Hgb Content (29-35) pg Potassium (3.4-4.6) mmol/L Random Glucose (70-110) mg/dL Calcium (7.9-10.9) mg/dL Calcium Adj for Albumin (8.4-10.2) mg/dL Total Bilirubin (0.0-1.1) mg/dL AST (0-48) U/L ALT (19-67) U/L Lactate Dehydrogenase 442 H (85-227) U/L C-Reactive Prot, Quant 6.8 H (0.0-0.9) mg/dL Total Protein (6.2-8.2) gm/dL Albumin (3.4-5.0) gm/dl Amylase (25-115) U/L Lipase (73-393) U/L - Exam Constitutional: Present: Alert, Cooperative, Well developed, No distress, Lethargic, Looks Older than stated age ENT Exam: Present: normal ENT inspection, hearing grossly normal, pharynx normal, TMs normal Neck: Present: non-tender, full range of motion, supple, normal inspection, trachea midline Breasts: Present: Exam deferred Respiratory: Present: chest non-tender, lungs clear, normal breath sounds, no respiratory distress, no accessory muscle use Cardiovascular/Chest: Present: normal peripheral pulses, regular rate, rhythm, no chest tenderness, no edema, no gallop, no JVD, no murmur, no rub Abdomen: Present: Normal bowel sounds, soft, nondistended, no rebound t enderness, no hepatospenomegaly, no masses, tender - Mild epigastric and periumbilical tenderness /Rectal: Present: Exam deferred Extremity: Present: normal range of motion, non-tender, normal inspection, no pedal edema, no calf tenderness, normal capillary refill Skin Exam: Present: normal color, warm/dry, no cyanosis Lymphatic: Present: no adenopathy Neurologic: Present: alert, depressed affect, disoriented x 3, dizzy/light- headedness Appearance: Present: disheveled, impaired insight, impaired recent memory, impaired remote memory Eye contact: Present: cooperative, good eye contact, decreased rate of speech, belligerent Thoughts: Present: delusions, visual hallucinations Assessment/Plan Plan Narrative: We will continue hydrating patient and monitor his progress, will also watch for oral tolerance now that we are progressing his diet. Follow-up labs have been ordered for tomorrow morning to reevaluate platelet levels, patient does not show any signs or symptoms of bleeding however we will consider transfusing him platelets if platelets continue to drop. We will also continue to watch his liver enzyme as well as pancreatic enzymes to evaluate his pancreatitis and hepatitis. Discharge planning was discussed with patient's sister with whom he lives she requested that home health aide be set up to assist in his care, catalytic case operator are on the case. - Problems/Diagnosis (1) Alcohol abuse Problem: Chronic (2) Acute pancreatitis Problem: Acute (3) Alcohol withdrawal Problem: Acute Qualifiers: Complication of substance-induced condition: with delirium Qualified Code(s): F10.231 - Alcohol dependence with withdrawal delirium (4) Autonomic dysfunction Problem: Acute (5) Hypertension Problem: Acute Qualifiers: Hypertension type: other secondary hypertension Qualified Code(s): I15.8 - Other secondary hypertension (6) Tachycardia Problem: Acute (7) Alcoholism Problem: Chronic (8) Delirium due to another medical condition Problem: Acute (9) Acute kidney injury superimposed on CKD Problem: Chronic (10) Thrombocytopenia Problem: Acute (11) Tremors of nervous system Problem: Acute (12) Occasional tremors Problem: Acute
[2019-04-08] MEDS: NICOTINE 21 MG PATC TD SCH (13:58)
--- NOTE | 2019-04-08 14:04 | PATHPSR ---
PHYSICIAN: Angelita Figueroa LAB#: [id number] SPECIMEN DATE: 04-08-2019 CLINICAL INFORMATION: 53 year old male presenting for ethanol withdrawal and pancreatitis. CBC: WBC 4.81 K/mm3, hemoglobin 11.4 gm/dl, hematocrit 32.8%, MCV is 100.6 fl, MCH is 35.0 pg, MCHC is 34.8 g/dl, Platelet count 28. Manual differential: Neutrophils 62 %, bands 7%, lymphocytes 18%, monocytes 5%, eosinophils 1%, basophils 0%, atypical reactive lymphocytes 0%. RED BLOOD CELLS: Macrocytic anemia PLATELETS: Thrombocytopenia WHITE BLOOD CELLS: Neutrophilia with left shift. No definitive megaloblastic changes. DIAGNOSIS: PERIPHERAL BLOOD SMEAR, REVIEW BY PATHOLOGIST: -MACROCYTIC ANEMIA -RELATIVE NEUTROPHILIA WITH LEFT SHIFT -THROMBOCYTOPENIA COMMENT: Alcohol toxicity may be contributing to this patient's macrocytic anemia. Vitamin B12 and folate levels should be assessed. The neutrophilia is likely related to this patient's stated history of pancreatitis. This patient's thrombocytopenia may have a mixed etiology with liver dysfunction and acute pancreatitis as contributing factors. Continuing assessment of this patient's liver synthetic functions may be warrented. No immature elements or malignancy is identified on our examination.
[2019-04-08] MEDS ORDERED: METOPROLOL TARTRATE 50 MG TABLET PO SCH (21:00)
[2019-04-08] MEDS: traZODone HCL 50 MG TABLET PO SCH (21:19)
[2019-04-08] MEDS: MONTELUKAST SODIUM 10 MG TABLET PO SCH (21:21)
[2019-04-08] MEDS: traZODone HCL 150 MG TABLET PO SCH (21:21)
[2019-04-09] MEDS: chlordiazePOXIDE HCL 25 MG CAPSULE PO PRN ×3 (04:00→19:43)
[2019-04-09] MEDS: POTASSIUM CHLORIDE 20 MEQ in DEXTROSE 5%-0.5 NORMAL SALINE 990 ML IV SCH ×3 (04:44→22:03)
[2019-04-09] MEDS: LORazepam 2 MG/ML DISP.SYRIN IV PRN ×5 (04:44→19:58)
[2019-04-09 07:01] LABS: Hemoglobin 12.6 gm/dL (13.5-18.0); Mean Cell Volume 96.9 fl (78-100); Mean Corpuscular Hemoglobin 35.9 pg (27-31); Mean Corpuscular Hgb Conc 37.1 g/dl (32-36); Mean Platelet Volume 11.7 fl (8-11.3); Neutrophil # 3.7 K/mm3 (1.3-6.0); Neutrophil % 66.3 % (42-75.0); Red Blood Count 3.51 M/mm3 (4.7-6.0); Red Cell Distribution Width 14.3 % (11.5-14.0); White Blood Count 5.6 K/mm3 (4.0-10.5)
[2019-04-09 07:13] LABS: Albumin * 3.2 gm/dl (3.4-5.0); Anion Gap 13.6 mmol/L (6.8-13.8); BUN/Creatinine Ratio 10.8 (9.0-21.6); Bilirubin, Total 1.8 mg/dL (0.0-1.1); Ca. Corrected For Albumin 8.3 mg/dL (8.4-10.2); Carbon Dioxide 26.7 mmol/L (24-32.6); Platelet Count 23 K/mm3 (150-450); Potassium 3.3 mmol/L (3.4-4.6); Total Protein 6.2 gm/dL (6.2-8.2)
[2019-04-09] MEDS: FLUTICASONE PROPION/SALMETEROL 14 PUFF DISK.W.DEV IH SCH ×2 (07:34→20:03)
[2019-04-09] MEDS ORDERED: POTASSIUM CHLORIDE 20 MEQ TABLET.SA PO ONE (08:51)
[2019-04-09] MEDS: METOPROLOL TARTRATE 100 MG TABLET PO SCH ×2 (09:20→20:22)
[2019-04-09] MEDS: FLUTICASONE PROPIONATE 120 SPRAY INHALER NS SCH (09:20)
[2019-04-09] MEDS: CYANOCOBALAMIN 1,000 MCG TABLET PO SCH (09:20)
[2019-04-09] MEDS: FOLIC ACID 1 MG TABLET PO SCH (09:21)
[2019-04-09] MEDS: CALCIUM CARBONATE 500 MG TAB.CHEW PO SCH ×2 (09:21→20:26)
[2019-04-09] MEDS: busPIRone HCL 5 MG TABLET PO SCH ×2 (09:21→20:01)
[2019-04-09] MEDS: MULTIVITAMINS 1 CAP CAPSULE PO SCH (09:21)
[2019-04-09] MEDS: DOCUSATE SODIUM 100 MG CAPSULE PO SCH ×2 (09:21→20:02)
[2019-04-09] MEDS: ROSUVASTATIN CALCIUM 20 MG TABLET PO SCH (09:22)
[2019-04-09] MEDS: THIAMINE HCL 100 MG/ML VIAL IM SCH (09:22)
[2019-04-09] MEDS: LISINOPRIL 10 MG TABLET PO SCH (09:22)
[2019-04-09] MEDS: FAMOTIDINE 20 MG in DEXTROSE 5 % IN WATER 100 ML IV SCH ×2 (09:33)
--- NOTE | 2019-04-09 09:56 | PN ---
Subjective - Date and Time Seen Date: 04/09/19 Time: 09:43 Subjective Narrative: I feel groggy. Objective Objective Narrative: 53-year-old male admitted for alcohol withdrawal and chronic alcoholism was evaluated at bedside was found to be afebrile and in no acute distress, patient has not presented any seizures and his tremors have improved. However he continues to occasionally have visual hallucinations and is somnolent but arousable. His platelets continue to decline, and as a precaution we have ordered for 1 unit of platelet pheresis to be transfused. Peripheral blood smear to evaluate his hematologic abnormalities demonstrate increased reticulocyte count, elevated atypical lymphocytes, and a macrocytic anemia. As a result vitamin B12 levels and folate levels were ordered and we have also ordered a fibrinogen to look into his worsening thrombocytopenia and to rule out DIC. Patient has an elevated LDH and elevated CRP which is most likely secondary to his liver disease and inflammation in his liver and pancreas. ep specialist are working on his discharge planning and working with his insurance to look for the most appropriate placement with adequate support for the patient. In the meantime we will continue treating him with anxiolytics on as-needed basis and based on CIWA scores and continue to monitor him closely. - Review of Systems Generalized/Overall Review: Reports: Weakness EENTM: Reports: No Symptoms Reported Respiratory: Reports: No Symptoms Reported Cardiac: Reports: No Symptoms Reported Abdominal: Reports: No Symptoms Reported Genitourinary Symptoms: Reports: No Symptoms Reported Musculoskeletal Complaints: Reports: No Symptoms Reported Neurological: Reports: Depressed, Tremors Skin: Reports: No Symptoms Reported Endocrine: Reports: No Symptoms Reported - Vitals Vitals: Last Vital Signs Temp 36.8 C 04/09/19 08:00 Pulse 69 04/09/19 08:00 Resp 20 04/09/19 08:00 BP 170/111 H 04/09/19 08:00 Pulse Ox 96 04/09/19 08:00 - Abnormal Lab Findings Abnormal Lab Findings: Abnormal Lab Results 04/09/19 04/09/19 04/09/19 Range/Units 06:55 06:55 08:42 RBC 3.51 L (4.7-6.0) M/mm3 Hgb 12.6 L (13.5-18.0) gm/dL Hct 34.0 L (42.0-52.0) % MCH 35.9 H (27-31) pg MCHC 37.1 H (32-36) g/dl RDW 14.3 H (11.5-14.0) % Plt Count 23 L* (150-450) K/mm3 MPV 11.7 H (8-11.3) fl Monocytes % 10.4 H (0.0-9) % Lymphocytes # 1.24 L (1.5-3.5) k/mm3 Potassium 3.3 L (3.4-4.6) mmol/L Random Glucose 134 H (70-110) mg/dL Calcium Adj for Albumin 8.3 L (8.4-10.2) mg/dL Total Bilirubin 1.8 H (0.0-1.1) mg/dL AST 190 H (0-48) U/L ALT 99 H (19-67) U/L Albumin 3.2 L (3.4-5.0) gm/dl Amylase 159 H (25-115) U/L Lipase 2751 H (73-393) U/L Vitamin B12 1091 H (193-986) pg/mL - Exam Constitutional: Present: Alert, Well developed, No distress, Somnolent, Elderly ENT Exam: Present: normal ENT inspection, hearing grossly normal, pharynx normal, TMs normal Neck: Present: non-tender, full range of motion, supple, normal inspection, trachea midline Breasts: Present: Exam deferred Respiratory: Present: chest non-tender Cardiovascular/Chest: Present: normal peripheral pulses, regular rate, rhythm, no chest tenderness, no edema, no gallop, no JVD, no murmur, no rub Abdomen: Present: Normal bowel sounds, soft, nontender, nondistended, no rebound tenderness, no masses /Rectal: Present: Exam deferred Extremity: Present: normal range of motion, non-tender, normal inspection, no pedal edema, no calf tenderness, normal capillary refill Skin Exam: Present: normal color, warm/dry, no cyanosis Lymphatic: Present: no adenopathy Neurologic: Present: tax map technician II-XII nml as tested, no motor/sensory deficits, alert, depressed affect Appearance: Present: disheveled, impaired insight, impaired recent memory, impaired remote memory Eye contact: Present: avoids eye contact, decreased rate of speech Thoughts: Present: incoherent, visual hallucinations Assessment/Plan Plan Narrative: Patient's acute pancreatitis and transaminitis are improving according to daily lab values, however patient's blood pressure continues to be elevated despite increase in his antihypertensives yesterday, metoprolol was once again increased this morning if needed we will add another agent. In the meantime work-up to rule out DIC is underway and an order for an INR to assess the extent of his liver damage was also placed. ep specialist are looking into discharge planning and investigating what resources are available to the patient based on his insurance. Will follow up with platelet levels after transfusion of platelets and watch for any signs or symptoms of bleeding. - Problems/Diagnosis (1) Alcohol abuse Problem: Chronic (2) Acute pancreatitis Problem: Acute (3) Alcohol withdrawal Problem: Acute Qualifiers: Complication of substance-induced condition: with delirium Qualified Code(s): F10.231 - Alcohol dependence with withdrawal delirium (4) Autonomic dysfunction Problem: Acute (5) Hypertension Problem: Acute Qualifiers: Hypertension type: other secondary hypertension Qualified Code(s): I15.8 - Other secondary hypertension (6) Tachycardia Problem: Resolved (7) Alcoholism Problem: Chronic (8) Delirium due to another medical condition Problem: Acute (9) Acute kidney injury superimposed on CKD Problem: Resolved (10) Thrombocytopenia Problem: Acute (11) Tremors of nervous system Problem: Acute (12) Occasional tremors Problem: Acute (13) Liver failure Problem: Acute (14) Liver damage, alcoholic Problem: Chronic
[2019-04-09] MEDS: ACETAMINOPHEN 325 MG TABLET PO PRN (10:58)
[2019-04-09 11:07] LABS: Hepatitis C Antibody NON-REACTIVE (NON-REACTIVE); Hepatitis Panel Confirmation DNR
[2019-04-09 12:37] LABS: Hepatitis B Surface Antigen NON-REACTIVE (NON-REACTIVE)
[2019-04-09] MEDS: NICOTINE 21 MG PATC TD SCH (14:05)
[2019-04-09] MEDS ORDERED: METOPROLOL TARTRATE 1 MG/ML AMPUL IV ONE (16:01)
[2019-04-09 16:44] LABS: Prothrombin Time (Patient) 10.4 Seconds (9.1-10.7)
[2019-04-09 16:52] LABS: INR 1.05 INR (0.92-1.08)
[2019-04-09] MEDS ORDERED: LABETALOL HCL 5 MG/ML VIAL IV ONE (17:47)
[2019-04-09 19:34] LABS: Haptoglobin 123 mg/dL (43-212)
[2019-04-09] MEDS: MONTELUKAST SODIUM 10 MG TABLET PO SCH (20:04)
[2019-04-09] MEDS: traZODone HCL 50 MG TABLET PO SCH (20:05)
[2019-04-09] MEDS: traZODone HCL 150 MG TABLET PO SCH (20:05)
[2019-04-10] MEDS: LORazepam 2 MG/ML DISP.SYRIN IV PRN ×2 (00:15→02:42)
[2019-04-10] MEDS: chlordiazePOXIDE HCL 25 MG CAPSULE PO PRN (02:42)
[2019-04-10] MEDS: POTASSIUM CHLORIDE 20 MEQ in DEXTROSE 5%-0.5 NORMAL SALINE 990 ML IV SCH ×3 (05:03→17:42)
[2019-04-10 05:57] LABS: Hematocrit 33.5 % (42.0-52.0); Hemoglobin 11.7 gm/dL (13.5-18.0); Mean Corpuscular Hemoglobin 34.9 pg (27-31); Mean Corpuscular Hgb Conc 34.9 g/dl (32-36); Mean Platelet Volume 11.7 fl (8-11.3); Neutrophil # 3.7 K/mm3 (1.3-6.0); Neutrophil % 59.5 % (42-75.0); Platelet Count 67 K/mm3 (150-450); Red Blood Count 3.35 M/mm3 (4.7-6.0); Red Cell Distribution Width 14.6 % (11.5-14.0); White Blood Count 6.2 K/mm3 (4.0-10.5)
[2019-04-10 05:59] LABS: Anion Gap 13.1 mmol/L (6.8-13.8); BUN/Creatinine Ratio 8.2 (9.0-21.6); Bilirubin, Total 1.4 mg/dL (0.0-1.1); Ca. Corrected For Albumin 8.8 mg/dL (8.4-10.2); Calcium * 8.3 mg/dL (7.9-10.9); Carbon Dioxide 26.4 mmol/L (24-32.6); Potassium 3.5 mmol/L (3.4-4.6); Total Protein 6.2 gm/dL (6.2-8.2)
[2019-04-10] MEDS ORDERED: chlordiazePOXIDE HCL 25 MG CAPSULE PO PRN (08:45)
[2019-04-10] MEDS: FLUTICASONE PROPION/SALMETEROL 14 PUFF DISK.W.DEV IH SCH ×2 (08:51→22:04)
[2019-04-10] MEDS ORDERED: cloNIDine 0.1 MG PATCH.TDWK TD SCH (09:00)
[2019-04-10] MEDS: FOLIC ACID 1 MG TABLET PO SCH (09:19)
[2019-04-10] MEDS: FLUTICASONE PROPIONATE 120 SPRAY INHALER NS SCH (09:19)
[2019-04-10] MEDS: CALCIUM CARBONATE 500 MG TAB.CHEW PO SCH ×2 (09:19→22:14)
[2019-04-10] MEDS: ROSUVASTATIN CALCIUM 20 MG TABLET PO SCH (09:19)
[2019-04-10] MEDS: busPIRone HCL 5 MG TABLET PO SCH ×2 (09:19→22:12)
[2019-04-10] MEDS: METOPROLOL TARTRATE 100 MG TABLET PO SCH ×2 (09:19→22:14)
[2019-04-10] MEDS: DOCUSATE SODIUM 100 MG CAPSULE PO SCH ×2 (09:19→22:13)
[2019-04-10] MEDS: MULTIVITAMINS 1 CAP CAPSULE PO SCH (09:19)
[2019-04-10] MEDS: LISINOPRIL 10 MG TABLET PO SCH (09:20)
[2019-04-10] MEDS: CYANOCOBALAMIN 1,000 MCG TABLET PO SCH (09:20)
[2019-04-10] MEDS: THIAMINE HCL 100 MG/ML VIAL IM SCH (09:27)
--- NOTE | 2019-04-10 10:56 | PN ---
Subjective - Date and Time Seen Date: 04/10/19 Time: 10:46 Subjective Narrative: I feel sleepy. Objective Objective Narrative: 53-year-old male admitted for alcohol withdrawal and chronic alcoholism was evaluated at bedside was found to be afebrile and in no acute distress. Patient continues to demonstrate grogginess, somnolence and occasional hallucinations. CIWA scores continue to be elevated sometimes above 20, requiring administration of Ativan. This morning it was reported that the patient was more sedated and usual, so Librium was held and Ativan was optimized to treat his alcohol withdrawal. Seizure activity has not been reported and tremors have improved. When patient is awake he denies abdominal pain and is tolerating oral intake without any issues. Liver enzymes as well as pancreatic enzymes continue to decline and his platelets have increased after he was transfused a unit of a pheresis of platelets. Patient's sister has informed us that she will be unable to care for him at home, because she returned to work yesterday so she does not feel comfortable having him discharged home. Therefore case advocate are working on placement in a care facility such as a senior living, we will follow-up with the result of the search. Patient's blood pressure has been difficult to control, yesterday it was significantly elevated at one-point over 170/110 despite another increase of his metoprolol, additional antihypertensive was added to his management specifically Catapres. In the meantime we will keep patient on telemetry and on seizure precautions and monitor him closely. - Review of Systems Generalized/Overall Review: Reports: Weakness EENTM: Reports: No Symptoms Reported Respiratory: Reports: No Symptoms Reported Cardiac: Reports: No Symptoms Reported Abdominal: Reports: No Symptoms Reported Genitourinary Symptoms: Reports: No Symptoms Reported Musculoskeletal Complaints: Reports: No Symptoms Reported Neurological: Reports: Emotional Problems, Tremors Skin: Reports: No Symptoms Reported Endocrine: Reports: No Symptoms Reported - Vitals Vitals: Last Vital Signs Temp 36.7 C 04/10/19 10:35 Pulse 79 04/10/19 10:35 Resp 20 04/10/19 10:35 BP 148/115 H 04/10/19 10:35 Pulse Ox 97 04/10/19 10:35 - Abnormal Lab Findings Abnormal Lab Findings: Abnormal Lab Results 04/10/19 04/10/19 Range/Units 05:35 05:35 RBC 3.35 L (4.7-6.0) M/mm3 Hgb 11.7 L (13.5-18.0) gm/dL Hct 33.5 L (42.0-52.0) % MCH 34.9 H (27-31) pg RDW 14.6 H (11.5-14.0) % Plt Count 67 L (150-450) K/mm3 MPV 11.7 H (8-11.3) fl Monocytes % 12.5 H (0.0-9) % BUN/Creatinine Ratio 8.2 L (9.0-21.6) Random Glucose 138 H (70-110) mg/dL Total Bilirubin 1.4 H (0.0-1.1) mg/dL AST 99 H (0-48) U/L ALT 76 H (19-67) U/L Albumin 3.0 L (3.4-5.0) gm/dl - Exam Constitutional: Present: Alert, Cooperative, Well developed, No distress, Somnolent, Middle aged, Looks Older than stated age ENT Exam: Present: normal ENT inspection, hearing grossly normal, pharynx normal, TMs normal Neck: Present: non-tender, full range of motion, supple, normal inspection, trachea midline Breasts: Present: Exam deferred Respiratory: Present: chest non-tender, lungs clear, normal breath sounds, no respiratory distress, no accessory muscle use Cardiovascular/Chest: Present: normal peripheral pulses, regular rate, rhythm, no chest tenderness, no edema, no gallop, no JVD, no murmur, no rub Abdomen: Present: Normal bowel sounds, soft, nontender, nondistended, no rebound tenderness, no masses /Rectal: Present: Exam deferred Extremity: Present: normal range of motion, non-tender, normal inspection, no pedal edema, no calf tenderness Skin Exam: Present: normal color, warm/dry, no cyanosis Lymphatic: Present: no adenopathy Neurologic: Present: quantometer operator II-XII nml as tested Appearance: Present: disheveled, impaired insight, impaired recent memory, impaired remote memory Eye contact: Present: avoids eye contact, decreased rate of speech, belligerent Thoughts: Present: incoherent, visual hallucinations Assessment/Plan Plan Narrative: We will continue to monitor BP with the addition of Catapres. IV fluids were stopped to avoid persistence of hypertension, especially since patient is tolerating oral intake now. We will follow-up with case advocate for discharge planning. - Problems/Diagnosis (1) Alcohol abuse Problem: Chronic (2) Acute pancreatitis Problem: Acute (3) Alcohol withdrawal Problem: Acute Qualifiers: Complication of substance-induced condition: with delirium Qualified Code(s): F10.231 - Alcohol dependence with withdrawal delirium (4) Autonomic dysfunction Problem: Acute (5) Hypertension Problem: Acute Qualifiers: Hypertension type: other secondary hypertension Qualified Code(s): I15.8 - Other secondary hypertension (6) Tachycardia Problem: Resolved (7) Alcoholism Problem: Chronic (8) Delirium due to another medical condition Problem: Acute (9) Acute kidney injury superimposed on CKD Problem: Resolved (10) Thrombocytopenia Problem: Acute (11) Tremors of nervous system Problem: Acute (12) Occasional tremors Problem: Acute (13) Liver failure Problem: Acute (14) Liver damage, alcoholic Problem: Chronic (15) Uncontrolled hypertension Problem: Acute
[2019-04-10] MEDS ORDERED: LABETALOL HCL 5 MG/ML VIAL IV ONE (11:44)
[2019-04-10] MEDS: LORazepam 2 MG/ML DISP.SYRIN IV SCH ×3 (13:40→22:11)
[2019-04-10] MEDS: NICOTINE 21 MG PATC TD SCH (13:57)
[2019-04-10] MEDS: traZODone HCL 150 MG TABLET PO SCH (22:13)
[2019-04-10] MEDS: traZODone HCL 50 MG TABLET PO SCH (22:14)
[2019-04-10] MEDS: MONTELUKAST SODIUM 10 MG TABLET PO SCH (22:15)
[2019-04-11 05:43] LABS: Hematocrit 30.6 % (42.0-52.0); Hemoglobin 10.8 gm/dL (13.5-18.0); Mean Corpuscular Hgb Conc 35.3 g/dl (32-36); Mean Platelet Volume 11.7 fl (8-11.3); Neutrophil # 2.8 K/mm3 (1.3-6.0); Neutrophil % 50.8 % (42-75.0); Platelet Count 75 K/mm3 (150-450); Red Blood Count 3.09 M/mm3 (4.7-6.0); Red Cell Distribution Width 14.4 % (11.5-14.0); White Blood Count 5.6 K/mm3 (4.0-10.5)
[2019-04-11 05:46] LABS: Albumin * 2.8 gm/dl (3.4-5.0); Anion Gap 12.4 mmol/L (6.8-13.8); BUN/Creatinine Ratio 14.8 (9.0-21.6); Bilirubin, Total 1.4 mg/dL (0.0-1.1); Calcium * 8.4 mg/dL (7.9-10.9); Carbon Dioxide 27.3 mmol/L (24-32.6); Potassium 3.7 mmol/L (3.4-4.6); Total Protein 5.8 gm/dL (6.2-8.2)
[2019-04-11] MEDS: METOPROLOL TARTRATE 100 MG TABLET PO SCH ×2 (08:38→20:08)
[2019-04-11] MEDS: LISINOPRIL 10 MG TABLET PO SCH (08:39)
[2019-04-11] MEDS: busPIRone HCL 5 MG TABLET PO SCH ×2 (08:39→20:04)
[2019-04-11] MEDS: FLUTICASONE PROPIONATE 120 SPRAY INHALER NS SCH (08:40)
[2019-04-11] MEDS: CALCIUM CARBONATE 500 MG TAB.CHEW PO SCH ×2 (08:40→20:07)
[2019-04-11] MEDS: DOCUSATE SODIUM 100 MG CAPSULE PO SCH ×2 (08:40→20:05)
[2019-04-11] MEDS: MULTIVITAMINS 1 CAP CAPSULE PO SCH (08:40)
[2019-04-11] MEDS: CYANOCOBALAMIN 1,000 MCG TABLET PO SCH (08:40)
[2019-04-11] MEDS: ROSUVASTATIN CALCIUM 20 MG TABLET PO SCH (08:40)
[2019-04-11] MEDS: FLUTICASONE PROPION/SALMETEROL 14 PUFF DISK.W.DEV IH SCH ×2 (08:40→20:04)
[2019-04-11] MEDS: FOLIC ACID 1 MG TABLET PO SCH (08:40)
[2019-04-11] MEDS: THIAMINE HCL 100 MG/ML VIAL IM SCH (08:41)
[2019-04-11] MEDS ORDERED: cloNIDine 0.1 MG PATCH.TDWK TD SCH (09:00)
[2019-04-11] MEDS: LORazepam 1 MG TABLET PO SCH ×2 (09:23→16:32)
--- NOTE | 2019-04-11 11:02 | PN ---
Subjective - Date and Time Seen Date: 04/11/19 Time: 10:47 Subjective Narrative: I feel better, more awake. Objective Objective Narrative: 53-year-old male admitted for alcohol withdrawal and chronic alcoholism was evaluated at bedside was found to be afebrile and in no acute distress. Patient patient was found to be more alert during this morning's rounds, he is more oriented than previous days, and he is answering questions. His tremors have resolved and no seizure activity has been reported. Patient's Librium was discontinued yesterday after he was found to be ready sedated and over somnolent, we also cut back on his Ativan. This morning's CIWA has shown great improvement, so this is encouraging. He also reports improvement of his abdominal pain however this morning he complained of a stomach upset, but this is most likely due to the fact that he had taken his morning meds. His blood pressure has also improved after optimization of his meds and discontinuation of IV fluids. We will continue to monitor him closely. - Review of Systems Generalized/Overall Review: Reports: No Symptoms Reported EENTM: Reports: No Symptoms Reported Respiratory: Reports: No Symptoms Reported Cardiac: Reports: No Symptoms Reported Abdominal: Reports: Nausea Genitourinary Symptoms: Reports: No Symptoms Reported Musculoskeletal Complaints: Reports: No Symptoms Reported Neurological: Reports: Anxiety, Emotional Problems Skin: Reports: No Symptoms Reported Endocrine: Reports: No Symptoms Reported - Vitals Vitals: Last Vital Signs Temp 36.5 C 04/11/19 10:36 Pulse 79 04/11/19 10:36 Resp 16 04/11/19 10:36 BP 140/95 H 04/11/19 10:36 Pulse Ox 97 04/11/19 10:36 - Abnormal Lab Findings Abnormal Lab Findings: Abnormal Lab Results 04/11/19 04/11/19 Range/Units 05:20 05:20 RBC 3.09 L (4.7-6.0) M/mm3 Hgb 10.8 L (13.5-18.0) gm/dL Hct 30.6 L (42.0-52.0) % MCH 35.0 H (27-31) pg RDW 14.4 H (11.5-14.0) % Plt Count 75 L (150-450) K/mm3 MPV 11.7 H (8-11.3) fl Monocytes % 18.2 H (0.0-9) % Random Glucose 118 H (70-110) mg/dL Total Bilirubin 1.4 H (0.0-1.1) mg/dL AST 58 H (0-48) U/L Total Protein 5.8 L (6.2-8.2) gm/dL Albumin 2.8 L (3.4-5.0) gm/dl Lipase 1347 H (73-393) U/L - Exam Constitutional: Present: Alert, Cooperative, Well developed, No distress, Looks Older than stated age ENT Exam: Present: normal ENT inspection, hearing grossly normal, pharynx normal, TMs normal Neck: Present: non-tender, full range of motion, supple, normal inspection, trachea midline Breasts: Present: Exam deferred Respiratory: Present: chest non-tender, lungs clear, normal breath sounds, no respiratory distress, no accessory muscle use Cardiovascular/Chest: Present: normal peripheral pulses, regular rate, rhythm, no chest tenderness, no edema, no gallop, no JVD, no murmur, no rub Abdomen: Present: tender - Mild tenderness to palpation and both lower quadrants and periumbilical region /Rectal: Present: Exam deferred Extremity: Present: normal range of motion, non-tender, normal inspection, no pedal edema, no calf tenderness, normal capillary refill Skin Exam: Present: normal color, warm/dry, no cyanosis Lymphatic: Present: no adenopathy Neurologic: Present: strategic planning analyst II-XII nml as tested, no motor/sensory deficits, alert, depressed affect Appearance: Present: disheveled, impaired recent memory, impaired remote memory Eye contact: Present: avoids eye contact, decreased rate of speech Thoughts: Present: no apparent hallucination Assessment/Plan Plan Narrative: We will continue to monitor patient and evaluate him with CIWA scale assesment. Anxiolytics and benzodiazepines have been reduced to keep patient more awake. Follow-up pancreatic enzymes and liver enzymes are improving and patient shows progress. Discharge planning is underway, will follow up with case preparer and liner to determine final arrangements. - Problems/Diagnosis (1) Alcohol abuse Problem: Chronic (2) Acute pancreatitis Problem: Acute Qualifiers: Pancreatitis type: alcohol induced (3) Alcohol withdrawal Problem: Acute Qualifiers: Complication of substance-induced condition: with delirium Qualified Code(s): F10.231 - Alcohol dependence with withdrawal delirium (4) Autonomic dysfunction Problem: Acute (5) Hypertension Problem: Acute Qualifiers: Hypertension type: other secondary hypertension Qualified Code(s): I15.8 - Other secondary hypertension (6) Tachycardia Problem: Resolved (7) Alcoholism Problem: Chronic (8) Delirium due to another medical condition Problem: Acute (9) Acute kidney injury superimposed on CKD Problem: Resolved (10) Thrombocytopenia Problem: Acute (11) Tremors of nervous system Problem: Resolved (12) Occasional tremors Problem: Acute (13) Liver failure Problem: Acute (14) Liver damage, alcoholic Problem: Chronic (15) Uncontrolled hypertension Problem: Acute
[2019-04-11] MEDS: NICOTINE 21 MG PATC TD SCH (13:40)
[2019-04-11] MEDS: traZODone HCL 50 MG TABLET PO SCH (20:06)
[2019-04-11] MEDS: traZODone HCL 150 MG TABLET PO SCH (20:06)
[2019-04-11] MEDS: MONTELUKAST SODIUM 10 MG TABLET PO SCH (20:07)
[2019-04-11] MEDS ORDERED: PANTOPRAZOLE SODIUM 40 MG TABLET.EC PO SCH (21:45)
[2019-04-11 22:17] LABS: Hematocrit 29.6 % (42.0-52.0); Hemoglobin 10.4 gm/dL (13.5-18.0)
[2019-04-11] MEDS ORDERED: LORazepam 2 MG/ML DISP.SYRIN IV PRN (22:21)
[2019-04-11] MEDS: PANTOPRAZOLE SODIUM 40 MG in NORMAL SALINE 100 ML IV SCH (23:14)
[2019-04-12] MEDS: LORazepam 1 MG TABLET PO SCH ×2 (02:53→08:55)
[2019-04-12 03:59] LABS: Hematocrit 29.1 % (42.0-52.0); Hemoglobin 10.3 gm/dL (13.5-18.0)
[2019-04-12] MEDS: FLUTICASONE PROPION/SALMETEROL 14 PUFF DISK.W.DEV IH SCH ×2 (07:04→21:25)
[2019-04-12] MEDS: busPIRone HCL 5 MG TABLET PO SCH ×2 (08:49→21:27)
[2019-04-12] MEDS: CALCIUM CARBONATE 500 MG TAB.CHEW PO SCH ×2 (08:50→21:28)
[2019-04-12] MEDS: ROSUVASTATIN CALCIUM 20 MG TABLET PO SCH (08:50)
[2019-04-12] MEDS: MULTIVITAMINS 1 CAP CAPSULE PO SCH (08:50)
[2019-04-12] MEDS: LISINOPRIL 10 MG TABLET PO SCH (08:50)
[2019-04-12] MEDS: METOPROLOL TARTRATE 100 MG TABLET PO SCH ×2 (08:50→21:28)
[2019-04-12] MEDS: FOLIC ACID 1 MG TABLET PO SCH (08:50)
[2019-04-12] MEDS: CYANOCOBALAMIN 1,000 MCG TABLET PO SCH (08:51)
[2019-04-12] MEDS: THIAMINE HCL 100 MG/ML VIAL IM SCH (08:51)
[2019-04-12] MEDS: DOCUSATE SODIUM 100 MG CAPSULE PO SCH ×2 (08:51→21:28)
[2019-04-12] MEDS: FLUTICASONE PROPIONATE 120 SPRAY INHALER NS SCH (08:56)
[2019-04-12] MEDS ORDERED: LORazepam 1 MG TABLET PO PRN (09:01)
--- NOTE | 2019-04-12 10:20 | PN ---
Subjective - Date and Time Seen Date: 04/12/19 Time: 10:08 Subjective Narrative: I feel better, more awake. But I had a bloody stool last night and still have abdominal pain. Objective Objective Narrative: 53-year-old male admitted for alcohol withdrawal and chronic alcoholism was evaluated at bedside was found to be afebrile and in no acute distress. Patient continues to demonstrate clinical improvement, there has been no seizure activity and he is more awake than before and oriented to person time and place. However, he had an episode of rectal bleeding last night. Nursing staff reported formed stools mixed in with fresh red blood. Therefore patient was placed on IV Protonix and serial H&H was ordered. So far his hemoglobin has remained stable and there has been no recurrence of the rectal bleeding. Patient does admit to being constipated for over 2 weeks before arriving to the hospital. In fact last night bowel movement was the first time he is gone in 2 weeks. This might explain the tenderness he has in the lower quadrants of his abdomen. As a precaution a KUB was ordered to evaluate his abdomen. Since patient is more awake Ativan was ordered only as a PRN basis. Blood pressure has improved and is nicely controlled on his current treatment. We will continue to monitor him and reevaluate him in the morning with follow-up labs. distance education teacher are working on discharge planning possibly to long term. - Review of Systems Generalized/Overall Review: Reports: No Symptoms Reported EENTM: Reports: No Symptoms Reported Respiratory: Reports: No Symptoms Reported Cardiac: Reports: No Symptoms Reported Abdominal: Reports: Abdominal Pain, Bright blood from rectum Genitourinary Symptoms: Reports: No Symptoms Reported Musculoskeletal Complaints: Reports: No Symptoms Reported Neurological: Reports: No Symptoms Reported Skin: Reports: No Symptoms Reported Endocrine: Reports: No Symptoms Reported - Vitals Vitals: Last Vital Signs Temp 36.5 C 04/12/19 07:09 Pulse 77 04/12/19 08:50 Resp 14 04/12/19 07:09 BP 129/80 04/12/19 08:50 Pulse Ox 98 04/12/19 07:09 - Abnormal Lab Findings Abnormal Lab Findings: Abnormal Lab Results 04/11/19 04/11/19 04/12/19 Range/Units 22:10 22:27 03:55 Hgb 10.4 L 10.3 L (13.5-18.0) gm/dL Hct 29.6 L 29.1 L (42.0-52.0) % Stool Occult Blood Positive H - Exam Constitutional: Present: Alert, Oriented x3, Cooperative, Well developed, No distress, Looks Older than stated age ENT Exam: Present: normal ENT inspection, hearing grossly normal, pharynx normal, TMs normal Neck: Present: non-tender, full range of motion, supple, normal inspection, trachea midline Breasts: Present: Exam deferred Respiratory: Present: chest non-tender, lungs clear, normal breath sounds, no respiratory distress, no accessory muscle use Cardiovascular/Chest: Present: normal peripheral pulses, regular rate, rhythm, no chest tenderness, no edema, no gallop, no JVD, no murmur, no rub Abdomen: Present: Normal bowel sounds, nondistended, no masses, tender - Tenderness in lower quadrants, rebound tenderness /Rectal: Present: Exam deferred Extremity: Present: normal range of motion, non-tender, normal inspection, no pedal edema, no calf tenderness, normal capillary refill Skin Exam: Present: normal color, warm/dry, no cyanosis Lymphatic: Present: no adenopathy Neurologic: Present: light armored vehicle officer II-XII nml as tested, normal cerebellar test, no motor/sensory deficits, alert, oriented x 3, depressed affect Appearance: Present: disheveled Eye contact: Present: cooperative, good eye contact, decreased rate of speech Thoughts: Present: normal thought pattern, no apparent hallucination Assessment/Plan Plan Narrative: We will follow-up with KUB results and keep patient on Protonix. We will reevaluate his progress in the morning with follow-up labs. In the meantime we will continue to monitor him closely. - Problems/Diagnosis (1) Alcohol abuse Problem: Chronic (2) Acute pancreatitis Problem: Acute Qualifiers: Pancreatitis type: alcohol induced (3) Alcohol withdrawal Problem: Acute Qualifiers: Complication of substance-induced condition: with delirium Qualified Code(s): F10.231 - Alcohol dependence with withdrawal delirium (4) Autonomic dysfunction Problem: Acute (5) Hypertension Problem: Acute Qualifiers: Hypertension type: other secondary hypertension Qualified Code(s): I15.8 - Other secondary hypertension (6) Tachycardia Problem: Resolved (7) Alcoholism Problem: Chronic (8) Delirium due to another medical condition Problem: Acute (9) Acute kidney injury superimposed on CKD Problem: Resolved (10) Thrombocytopenia Problem: Acute (11) Tremors of nervous system Problem: Resolved (12) Occasional tremors Problem: Acute (13) Liver failure Problem: Acute (14) Liver damage, alcoholic Problem: Chronic (15) Uncontrolled hypertension Problem: Acute (16) Rectal bleeding Problem: Acute (17) Chronic constipation Problem: Acute
[2019-04-12 10:27] LABS: Hematocrit 29.3 % (42.0-52.0); Hemoglobin 10.3 gm/dL (13.5-18.0)
[2019-04-12] MEDS: PANTOPRAZOLE SODIUM 40 MG in NORMAL SALINE 100 ML IV SCH ×2 (11:08→21:28)
[2019-04-12] MEDS: NEOMYCIN/BACITRACIN/POLYMYXINB 30 APPL TUBE TP SCH ×2 (11:51→21:28)
[2019-04-12] MEDS: NICOTINE 21 MG PATC TD SCH (15:37)
[2019-04-12 16:37] LABS: Hemoglobin 10.5 gm/dL (13.5-18.0)
[2019-04-12] MEDS: traZODone HCL 150 MG TABLET PO SCH (21:27)
[2019-04-12] MEDS: traZODone HCL 50 MG TABLET PO SCH (21:28)
[2019-04-12] MEDS: MONTELUKAST SODIUM 10 MG TABLET PO SCH (21:28)
[2019-04-13 05:47] LABS: Hematocrit 26.7 % (42.0-52.0); Hemoglobin 9.3 gm/dL (13.5-18.0); Mean Cell Volume 100.4 fl (78-100); Mean Corpuscular Hgb Conc 34.8 g/dl (32-36); Mean Platelet Volume 10.8 fl (8-11.3); Platelet Count 123 K/mm3 (150-450); Red Blood Count 2.66 M/mm3 (4.7-6.0); Red Cell Distribution Width 14.6 % (11.5-14.0); White Blood Count 4.3 K/mm3 (4.0-10.5)
[2019-04-13 05:52] LABS: Total Cells Counted 100
[2019-04-13 06:04] LABS: Albumin * 2.9 gm/dl (3.4-5.0); Anion Gap 14.2 mmol/L (6.8-13.8); BUN/Creatinine Ratio 21.8 (9.0-21.6); Bilirubin, Total 0.7 mg/dL (0.0-1.1); Ca. Corrected For Albumin 9.4 mg/dL (8.4-10.2); Calcium * 8.8 mg/dL (7.9-10.9); Carbon Dioxide 26.4 mmol/L (24-32.6); Potassium 3.6 mmol/L (3.4-4.6); Total Protein 6.2 gm/dL (6.2-8.2)
[2019-04-13 06:33] LABS: Atypical (Reactive) Lymph 2 % (0-2); Band 2 % (0-2.0); Basophil 1 % (0-1); Immature Granulocyte 4 (0-1); Lymphocyte 48 % (20-51); Monocyte 6 % (0-9); Neutrophil 37 % (42-75); Neutrophil # 1.6 K/mm3 (1.3-6.0)
[2019-04-13 06:40] LABS: Microcytosis 1+; Poikilocytosis 1+
[2019-04-13] MEDS: FLUTICASONE PROPION/SALMETEROL 14 PUFF DISK.W.DEV IH SCH ×2 (06:58→19:27)
[2019-04-13] MEDS: FLUTICASONE PROPIONATE 120 SPRAY INHALER NS SCH (08:59)
[2019-04-13] MEDS: THIAMINE HCL 100 MG TABLET PO SCH (09:00)
[2019-04-13] MEDS: NEOMYCIN/BACITRACIN/POLYMYXINB 30 APPL TUBE TP SCH ×2 (09:00→20:35)
[2019-04-13] MEDS: CYANOCOBALAMIN 1,000 MCG TABLET PO SCH (09:00)
[2019-04-13] MEDS: DOCUSATE SODIUM 100 MG CAPSULE PO SCH ×2 (09:00→20:32)
[2019-04-13] MEDS: busPIRone HCL 5 MG TABLET PO SCH ×2 (09:01→20:33)
[2019-04-13] MEDS: METOPROLOL TARTRATE 100 MG TABLET PO SCH ×2 (09:01→20:35)
[2019-04-13] MEDS: CALCIUM CARBONATE 500 MG TAB.CHEW PO SCH ×2 (09:01→20:36)
[2019-04-13] MEDS: ROSUVASTATIN CALCIUM 20 MG TABLET PO SCH (09:01)
[2019-04-13] MEDS: FOLIC ACID 1 MG TABLET PO SCH (09:01)
[2019-04-13] MEDS: MULTIVITAMINS 1 CAP CAPSULE PO SCH (09:01)
[2019-04-13] MEDS: LISINOPRIL 10 MG TABLET PO SCH (09:02)
[2019-04-13] MEDS: PANTOPRAZOLE SODIUM 40 MG in NORMAL SALINE 100 ML IV SCH (09:02)
[2019-04-13] MEDS ORDERED: IBUPROFEN 400 MG TABLET PO PRN (09:18)
--- NOTE | 2019-04-13 11:51 | PN ---
Subjective - Date and Time Seen Date: 04/13/19 Time: 08:30 Subjective Narrative: Mr. Kuo seems to be doing quite a lot better. This morning he is sitting up in a chair and had eaten a good breakfast. He answers questions appropriately and seems to be oriented to time date and place. He does not have any asterixis or tremor this morning. There have not been in any further episodes of him trying to get out of bed urinating on the floor etc. I reviewed his medications this morning and discontinued the acetaminophen and the rosuvastatin because of their need to be metabolized through the liver. Otherwise his medication program is excellent and he is responded well to it. He has not had any cardiac dysrhythmias. He is in normal sinus rhythm rate in the 60s. He has no appreciable edema except mild pedal edema and no palpable ascites this morning. Objective - Review of Systems Generalized/Overall Review: Reports: No Symptoms Reported EENTM: Reports: No Symptoms Reported Respiratory: Reports: No Symptoms Reported Cardiac: Reports: No Symptoms Reported Abdominal: Reports: No Symptoms Reported Genitourinary Symptoms: Reports: No Symptoms Reported Musculoskeletal Complaints: Reports: No Symptoms Reported Neurological: Reports: Headache Skin: Reports: No Symptoms Reported Endocrine: Reports: No Symptoms Reported - Vitals Vitals: Last Vital Signs Temp 36.3 C 04/13/19 07:08 Pulse 69 04/13/19 09:02 Resp 12 04/13/19 07:08 BP 114/79 04/13/19 09:02 Pulse Ox 100 04/13/19 07:08 - Abnormal Lab Findings Abnormal Lab Findings: Abnormal Lab Results 04/12/19 04/13/19 04/13/19 Range/Units 16:25 05:40 05:40 RBC 2.66 L (4.7-6.0) M/mm3 Hgb 10.5 L 9.3 L (13.5-18.0) gm/dL Hct 30.0 L 26.7 L (42.0-52.0) % MCV 100.4 H (78-100) fl MCH 35.0 H (27-31) pg RDW 14.6 H (11.5-14.0) % Plt Count 123 L (150-450) K/mm3 Neutrophils % (Manual) 37 L (42-75) % Immature Granulocytes 4 H (0-1) Anion Gap 14.2 H (6.8-13.8) mmol/L BUN/Creatinine Ratio 21.8 H (9.0-21.6) Random Glucose 131 H (70-110) mg/dL Albumin 2.9 L (3.4-5.0) gm/dl Lipase 1596 H (73-393) U/L - EKG/Xray Findings EKG: NSR EKG read: Interp. by me XRAY: abdomen Interpretation: Reviewed by me - Exam Constitutional: Present: Alert, Oriented x3, Cooperative, Well developed, No distress ENT Exam: Present: normal ENT inspection, hearing grossly normal, pharynx normal Neck: Present: non-tender, full range of motion, supple, normal inspection Breasts: Present: Nontender Respiratory: Present: chest non-tender, lungs clear, normal breath sounds, no respiratory distress, no accessory muscle use Cardiovascular/Chest: Present: normal peripheral pulses, regular rate, rhythm, no chest tenderness, no edema, no gallop, no JVD - But he has a weakly positive HJR, no murmur, no rub Abdomen: Present: Normal bowel sounds, tender - On palpation of the liver. Absent: no hepatospenomegaly /Rectal: Present: Exam deferred Extremity: Present: normal range of motion, non-tender, normal inspection, pedal edema Skin Exam: Present: normal color, warm/dry, no cyanosis Lymphatic: Present: no adenopathy Neurologic: Present: vice president supply chain II-XII nml as tested, no motor/sensory deficits, alert, normal mood/affect, oriented x 3, abnormal cerebellar tests, abnormal gait, other - No asterixis Appearance: Present: appropriate appearance Eye contact: Present: cooperative, good eye contact, normal speech Thoughts: Present: normal thought pattern, no apparent hallucination Assessment/Plan Plan Narrative: Terrell hemoglobin has dropped to 9.3 g which is 3 g less than on admission. Some of this is hemodilution as he is much better hydrated now. Nonetheless he has had some rectal bleeding and that will need to be continued to be monitored. Otherwise there are no other concerns and his lab work this morning. I will repeat CBC, CMP and a reticulocyte count tomorrow morning. I have discontinued his rosuvastatin and acetaminophen today. I replaced it with ibuprofen. His lipase is back up to about 1500 from 1300 yesterday. He has no abdominal pain nausea or vomiting so we will continue to feed him. His protein and albumin are quite low. Recheck lipase again tomorrow morning. If he is started having abdominal pain nausea or vomiting then I will place him n.p.o. again. Liver enzymes are all back in normal range this morning. - Problems/Diagnosis (1) Alcoholism Problem: Chronic (2) Acute pancreatitis Problem: Acute Qualifiers: Pancreatitis type: alcohol induced (3) Malnutrition Problem: Acute Qualifiers: Malnutrition type: protein-calorie malnutrition Protein-calorie malnutrition severity: moderate Qualified Code(s): E44.0 - Moderate protein- calorie malnutrition (4) Hypertension Problem: Acute Qualifiers: Hypertension type: other secondary hypertension Qualified Code(s): I15.8 - Other secondary hypertension
[2019-04-13] MEDS: NICOTINE 21 MG PATC TD SCH (14:37)
[2019-04-13] MEDS: traZODone HCL 150 MG TABLET PO SCH (20:34)
[2019-04-13] MEDS: traZODone HCL 50 MG TABLET PO SCH (20:34)
[2019-04-13] MEDS: MONTELUKAST SODIUM 10 MG TABLET PO SCH (20:35)
[2019-04-14 05:46] LABS: Hematocrit 26.6 % (42.0-52.0); Hemoglobin 9.2 gm/dL (13.5-18.0); Mean Cell Volume 103.1 fl (78-100); Mean Corpuscular Hemoglobin 35.7 pg (27-31); Mean Corpuscular Hgb Conc 34.6 g/dl (32-36); Platelet Count 170 K/mm3 (150-450); Red Blood Count 2.58 M/mm3 (4.7-6.0); Red Cell Distribution Width 14.4 % (11.5-14.0); White Blood Count 4.6 K/mm3 (4.0-10.5)
[2019-04-14 05:55] LABS: Total Cells Counted 100
[2019-04-14 06:22] LABS: Anion Gap 13.7 mmol/L (6.8-13.8); BUN/Creatinine Ratio 23.1 (9.0-21.6); Bilirubin, Total 0.6 mg/dL (0.0-1.1); Ca. Corrected For Albumin 10.1 mg/dL (8.4-10.2); Calcium * 9.6 mg/dL (7.9-10.9); Potassium 3.7 mmol/L (3.4-4.6); Total Protein 6.5 gm/dL (6.2-8.2)
[2019-04-14 06:34] LABS: Atypical (Reactive) Lymph 9 % (0-2); Band 1 % (0-2.0); Basophil 1 % (0-1); Eosinophil 3 % (0-3); Immature Granulocyte 4 (0-1); Lymphocyte 36 % (20-51); Monocyte 5 % (0-9); Neutrophil 41 % (42-75); Neutrophil # 1.9 K/mm3 (1.3-6.0)
[2019-04-14 06:36] LABS: Microcytosis 1+
[2019-04-14] MEDS: FLUTICASONE PROPION/SALMETEROL 14 PUFF DISK.W.DEV IH SCH ×2 (07:54→18:43)
[2019-04-14] MEDS: PANTOPRAZOLE SODIUM 40 MG TABLET.EC PO SCH (07:55)
[2019-04-14] MEDS: LISINOPRIL 10 MG TABLET PO SCH (08:02)
[2019-04-14] MEDS: CALCIUM CARBONATE 500 MG TAB.CHEW PO SCH ×2 (08:02→20:11)
[2019-04-14] MEDS: busPIRone HCL 5 MG TABLET PO SCH ×2 (08:02→20:09)
[2019-04-14] MEDS: DOCUSATE SODIUM 100 MG CAPSULE PO SCH ×2 (08:02→20:10)
[2019-04-14] MEDS: MULTIVITAMINS 1 CAP CAPSULE PO SCH (08:03)
[2019-04-14] MEDS: THIAMINE HCL 100 MG TABLET PO SCH (08:03)
[2019-04-14] MEDS: FLUTICASONE PROPIONATE 120 SPRAY INHALER NS SCH (08:03)
[2019-04-14] MEDS: CYANOCOBALAMIN 1,000 MCG TABLET PO SCH (08:03)
[2019-04-14] MEDS: METOPROLOL TARTRATE 100 MG TABLET PO SCH ×2 (08:03→20:10)
[2019-04-14] MEDS: NEOMYCIN/BACITRACIN/POLYMYXINB 30 APPL TUBE TP SCH ×2 (08:03→20:13)
[2019-04-14] MEDS: FOLIC ACID 1 MG TABLET PO SCH (08:03)
--- NOTE | 2019-04-14 11:01 | PN ---
Subjective - Date and Time Seen Date: 04/14/19 Time: 08:45 Objective - Review of Systems Generalized/Overall Review: Reports: No Symptoms Reported, Weakness - Which is improving, Malaise - Which is improving EENTM: Reports: No Symptoms Reported Respiratory: Reports: No Symptoms Reported Cardiac: Reports: No Symptoms Reported Abdominal: Reports: Nausea, Abdominal Pain Genitourinary Symptoms: Reports: No Symptoms Reported Musculoskeletal Complaints: Reports: No Symptoms Reported Neurological: Reports: No Symptoms Reported, Weakness. Denies: Tremors Skin: Reports: No Symptoms Reported Endocrine: Reports: No Symptoms Reported Misc: All systems neg except as marked - Vitals Vitals: Last Vital Signs Temp 36.8 C 04/14/19 07:03 Pulse 68 04/14/19 08:03 Resp 18 04/14/19 07:03 BP 130/89 04/14/19 08:03 Pulse Ox 97 04/14/19 07:03 - Abnormal Lab Findings Abnormal Lab Findings: Abnormal Lab Results 04/13/19 04/14/19 04/14/19 Range/Units Unknown 05:30 05:30 RBC 2.58 L (4.7-6.0) M/mm3 Hgb 9.2 L (13.5-18.0) gm/dL Hct 26.6 L (42.0-52.0) % MCV 103.1 H (78-100) fl MCH 35.7 H (27-31) pg RDW 14.4 H (11.5-14.0) % Neutrophils % (Manual) 41 L (42-75) % Immature Granulocytes 4 H (0-1) Atypic/Reactive Lymphs 9 H (0-2) % Percent Retic 3.2 H 2.7 H (0.4-1.8) % Immature Retic Fraction 17.0 H (2.3-13.4) % Retic Hgb Content 40.6 H 40.0 H (29-35) pg BUN/Creatinine Ratio 23.1 H (9.0-21.6) Albumin 3.0 L (3.4-5.0) gm/dl Lipase 1391 H (73-393) U/L - Exam Constitutional: Present: Alert, Oriented x3, Cooperative, Well developed, Middle aged, Thin and frail ENT Exam: Present: normal ENT inspection, hearing grossly normal, pharynx normal, TMs normal Neck: Present: non-tender, full range of motion, supple, normal inspection Respiratory: Present: lungs clear, normal breath sounds, no respiratory distress, no accessory muscle use Cardiovascular/Chest: Present: normal peripheral pulses, regular rate, rhythm, no chest tenderness, no edema, no gallop, no JVD, no murmur, no rub Abdomen: Present: Normal bowel sounds, soft, nondistended, no rebound tenderness, tender - In the right upper quadrant and midepigastrium on palpation. The liver is palpably enlarged. Abdomen feels like there is ascites present. 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 He has walked in the halls with assistance for about 200 feet. He is in no distress the time of my exam this morning. He has been eating very well since being here but feels a little distended because of that. He had some abdominal discomfort but he thinks it was from overeating. On exam the abdomen is distended and the liver is palpably enlarged and tender. There is pain on palpation of the midepigastrium. Abdomen seems a little taut to me but I am not unable to determine a succussion splash that is reliable. His lab today shows the white count is normal and the platelets have now climbed to normal at 176,000. This is the first day they have been normal. The hemoglobin is at 9.2 g today was 9.3 yesterday but it seems to have plateaued here. His lipase has dropped to 1357 down about 200 points from yesterday. He is not having any nausea or pancreatic area pain. His protein stores remain low but are improving. His nutritional status is improving. Neurological assessment: I am unable to determine any asterixis or tremor or withdrawal symptoms from alcohol. He does have some mild to moderate ataxia but his apraxia is much improved. There are no lateralizing motor or sensory deficits. Mental status has improved. - Problems/Diagnosis (1) Alcoholism Problem: Chronic (2) Acute pancreatitis Problem: Acute Qualifiers: Pancreatitis type: alcohol induced (3) Malnutrition Problem: Acute Qualifiers: Malnutrition type: protein-calorie malnutrition Protein-calorie malnutrition severity: moderate Qualified Code(s): E44.0 - Moderate protein- calorie malnutrition (4) Hypertension Problem: Acute Qualifiers: Hypertension type: other secondary hypertension Qualified Code(s): I15.8 - Other secondary hypertension (5) Macrocytic anemia Problem: Acute
[2019-04-14] MEDS: NICOTINE 21 MG PATC TD SCH (14:09)
[2019-04-14] MEDS: traZODone HCL 50 MG TABLET PO SCH (20:09)
[2019-04-14] MEDS: traZODone HCL 150 MG TABLET PO SCH (20:09)
[2019-04-14] MEDS: MONTELUKAST SODIUM 10 MG TABLET PO SCH (20:11)
[2019-04-15 05:50] LABS: Hematocrit 27.7 % (42.0-52.0); Hemoglobin 9.4 gm/dL (13.5-18.0); Mean Cell Volume 101.8 fl (78-100); Mean Corpuscular Hemoglobin 34.6 pg (27-31); Mean Corpuscular Hgb Conc 33.9 g/dl (32-36); Mean Platelet Volume 10.4 fl (8-11.3); Neutrophil # 1.8 K/mm3 (1.3-6.0); Neutrophil % 33.9 % (42-75.0); Platelet Count 197 K/mm3 (150-450); Red Blood Count 2.72 M/mm3 (4.7-6.0); Red Cell Distribution Width 14.1 % (11.5-14.0); White Blood Count 5.4 K/mm3 (4.0-10.5)
[2019-04-15 05:56] LABS: Albumin * 3.1 gm/dl (3.4-5.0); Anion Gap 14.1 mmol/L (6.8-13.8); BUN/Creatinine Ratio 16.7 (9.0-21.6); Bilirubin, Total 0.6 mg/dL (0.0-1.1); Ca. Corrected For Albumin 10.2 mg/dL (8.4-10.2); Calcium * 9.8 mg/dL (7.9-10.9); Carbon Dioxide 27.9 mmol/L (24-32.6); Total Protein 6.7 gm/dL (6.2-8.2)
[2019-04-15] MEDS: PANTOPRAZOLE SODIUM 40 MG TABLET.EC PO SCH (07:59)
[2019-04-15] MEDS: FLUTICASONE PROPION/SALMETEROL 14 PUFF DISK.W.DEV IH SCH ×2 (07:59→21:28)
--- NOTE | 2019-04-15 09:13 | PN ---
Subjective - Date and Time Seen Date: 04/15/19 Subjective Narrative: I feel much better, no tremors or abdominal pain. Objective Objective Narrative: 53-year-old male admitted for alcohol withdrawal, acute pancreatitis, transaminitis, and chronic alcoholism was evaluated at bedside was found to be afebrile and in no acute distress. Patient continues to show significant improvement and he is in good spirits. He denies any abdominal pain or recurrence of rectal bleeding, and is tolerating oral intake without any issues. Patient is also undergoing inpatient physical therapy and is ambulating without any issues with a therapist. His blood pressure has also improved in response to the antihypertensives that were added to his treatment and he remains in sinus rhythm. Patient's pancreatic enzymes continued to decline and his transaminitis has resolved. Abdominal ultrasound was ordered to evaluate distention of his abdomen and to assess for ascites or any other pathology. There hasn't been any seizures and his tremors have improved. Discharge planning to a [facility] is underway, authorization from his insurance is pending. - Review of Systems Generalized/Overall Review: Reports: No Symptoms Reported EENTM: Reports: No Symptoms Reported Respiratory: Reports: No Symptoms Reported Cardiac: Reports: No Symptoms Reported Abdominal: Reports: No Symptoms Reported Genitourinary Symptoms: Reports: Retention Musculoskeletal Complaints: Reports: No Symptoms Reported Neurological: Reports: No Symptoms Reported Skin: Reports: No Symptoms Reported Endocrine: Reports: No Symptoms Reported - Vitals Vitals: Last Vital Signs Temp 36.7 C 04/15/19 07:00 Pulse 67 04/15/19 07:00 Resp 12 04/15/19 07:00 BP 117/74 04/15/19 07:00 Pulse Ox 98 04/15/19 07:00 - Abnormal Lab Findings Abnormal Lab Findings: Abnormal Lab Results 04/15/19 04/15/19 Range/Units 05:33 05:33 RBC 2.72 L (4.7-6.0) M/mm3 Hgb 9.4 L (13.5-18.0) gm/dL Hct 27.7 L (42.0-52.0) % MCV 101.8 H (78-100) fl MCH 34.6 H (27-31) pg RDW 14.1 H (11.5-14.0) % Immature Gran % (Auto) 0.00 L (0.001-0.429) % Neutrophils % 33.9 L (42-75.0) % Monocytes % 26.0 H (0.0-9) % Monocytes # 1.4 H (0.0-1.0) k/mm3 Percent Retic 2.5 H (0.4-1.8) % Retic Hgb Content 40.0 H (29-35) pg Anion Gap 14.1 H (6.8-13.8) mmol/L Albumin 3.1 L (3.4-5.0) gm/dl - Exam Constitutional: Present: Alert, Oriented x3, Cooperative, Well developed, Well nourished, No distress ENT Exam: Present: normal ENT inspection, hearing grossly normal, pharynx normal, TMs normal Neck: Present: non-tender, full range of motion, supple, normal inspection, trachea midline Breasts: Present: Exam deferred Respiratory: Present: chest non-tender, lungs clear, normal breath sounds, no respiratory distress, no accessory muscle use Cardiovascular/Chest: Present: normal peripheral pulses, regular rate, rhythm, no chest tenderness, no edema, no gallop, no JVD, no murmur, no rub Abdomen: Present: Normal bowel sounds, soft, nontender, nondistended, no rebound tenderness, no masses /Rectal: Present: Exam deferred Extremity: Present: normal range of motion, non-tender, normal inspection, no pedal edema, no calf tenderness, normal capillary refill, pelvis stable Skin Exam: Present: normal color, warm/dry, no cyanosis Lymphatic: Present: no adenopathy 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 - Problems/Diagnosis (1) Alcohol abuse Problem: Chronic (2) Acute pancreatitis Problem: Acute Qualifiers: Pancreatitis type: alcohol induced (3) Alcohol withdrawal Problem: Acute Qualifiers: Complication of substance-induced condition: with delirium Qualified Code(s): F10.231 - Alcohol dependence with withdrawal delirium (4) Autonomic dysfunction Problem: Resolved (5) Hypertension Problem: Resolved Qualifiers: Hypertension type: other secondary hypertension Qualified Code(s): I15.8 - Other secondary hypertension (6) Tachycardia Problem: Resolved (7) Alcoholism Problem: Chronic (8) Delirium due to another medical condition Problem: Acute (9) Acute kidney injury superimposed on CKD Problem: Resolved (10) Thrombocytopenia Problem: Acute (11) Tremors of nervous system Problem: Resolved (12) Occasional tremors Problem: Acute (13) Liver failure Problem: Resolved (14) Liver damage, alcoholic Problem: Chronic (15) Uncontrolled hypertension Problem: Acute (16) Rectal bleeding Problem: Resolved (17) Chronic constipation Problem: Resolved
[2019-04-15] MEDS: busPIRone HCL 5 MG TABLET PO SCH ×2 (09:22→21:28)
[2019-04-15] MEDS: MULTIVITAMINS 1 CAP CAPSULE PO SCH (09:22)
[2019-04-15] MEDS: CALCIUM CARBONATE 500 MG TAB.CHEW PO SCH ×2 (09:22→21:28)
[2019-04-15] MEDS: FOLIC ACID 1 MG TABLET PO SCH (09:22)
[2019-04-15] MEDS: DOCUSATE SODIUM 100 MG CAPSULE PO SCH ×2 (09:22→21:28)
[2019-04-15] MEDS: FLUTICASONE PROPIONATE 120 SPRAY INHALER NS SCH (09:22)
[2019-04-15] MEDS: THIAMINE HCL 100 MG TABLET PO SCH (09:22)
[2019-04-15] MEDS: METOPROLOL TARTRATE 100 MG TABLET PO SCH ×2 (09:23→21:29)
[2019-04-15] MEDS: LISINOPRIL 10 MG TABLET PO SCH (09:23)
[2019-04-15] MEDS: NEOMYCIN/BACITRACIN/POLYMYXINB 30 APPL TUBE TP SCH ×2 (09:23→21:30)
[2019-04-15] MEDS: CYANOCOBALAMIN 1,000 MCG TABLET PO SCH (09:23)
--- NOTE | 2019-04-15 13:42 | DS ---
(1) Alcohol abuse Problem: Chronic (2) Acute pancreatitis Problem: Acute Qualifiers: Pancreatitis type: alcohol induced (3) Alcohol withdrawal Problem: Resolved Qualifiers: Complication of substance-induced condition: with delirium Qualified Code(s): F10.231 - Alcohol dependence with withdrawal delirium (4) Autonomic dysfunction Problem: Resolved (5) Hypertension Problem: Resolved Qualifiers: Hypertension type: other secondary hypertension Qualified Code(s): I15.8 - Other secondary hypertension (6) Tachycardia Problem: Resolved (7) Alcoholism Problem: Chronic (8) Delirium due to another medical condition Problem: Acute (9) Acute kidney injury superimposed on CKD Problem: Resolved (10) Thrombocytopenia Problem: Acute (11) Tremors of nervous system Problem: Resolved (12) Occasional tremors Problem: Acute (13) Liver failure Problem: Resolved (14) Liver damage, alcoholic Problem: Chronic (15) Uncontrolled hypertension Problem: Acute (16) Rectal bleeding Problem: Resolved (17) Chronic constipation Problem: Resolved Date of Discharge:: 04/15/19 Description of Stay: 53-year-old male admitted for alcohol withdrawal with delirium, acute pancreatitis, transaminitis, and autonomic dysfunction was evaluated at bedside and was found to be afebrile and in no acute distress. Patient responded favorably to treatment in the management he received here at [facility]. Patient was treated with aggressive IV hydration and was initially placed on n.p.o. to rest his bowels to treat his acute pancreatitis. He was also treated with Ativan [id number] and then was weaned down to as needed basis. During the hospitalization there were no seizures reported however the patient was admitted with a severe tremor and significant confusion and disorientation. During the course of the hospitalization he was also transfused platelets for worsening thrombocytopenia, since then his platelets have increased back to normal levels. Diet was eventually restarted and patient tolerated a low-fat diet with no issues. His blood pressure also required aggressive management with multiple antihypertensives both IV and p.o., thankfully his blood pressure is nicely controlled now. Since being hospitalized the patient has returned back to his baseline mental status and is now oriented in 3 spheres, he also is found to be in a wonderful mood and says he feels like himself again. An abdominal ultrasound performed during hospitalization was negative for any concerning findings except for a fatty liver, no ascites was reported. Physical therapist have been working with him to work on his balance and ambulation and the report that he is doing well. cell plasterer were able to secure placement in a senior living after obtaining authorization from his insurance. Therefore we are discharging patient to [facility] where he will continue his physical therapy. They will be picking him up shortly. Procedures Performed: none Results and Findings: Lab Pending Results 04/06/19 19:30: WBC 4.7, RBC 3.51 L, Hgb 12.4 L, Hct 35.7 L, MCV 101.7 H, MCH 35.3 H, MCHC 34.7, RDW 15.0 H, Plt Count 57 L, MPV 10.4, Immature Gran % (Auto) 0.20, Immature Gran # (Auto) 0.01, Neutrophils % 76.7 H, Lymphocytes % 10.7 L, Monocytes % 12.2 H, Eosinophils % 0.0, Basophils % 0.2, Nucleated RBC % 0.0, Neutrophils # 3.6, Lymphocytes # 0.50 L, Monocytes # 0.6, Eosinophils # 0.0, Absolute Basophils 0.0 04/06/19 19:30: Sodium 141, Plasma Sodium 141, Potassium 3.7, Chloride 95 L, Carbon Dioxide 18.0 L, Anion Gap 31.7 H, BUN 38 H, Creatinine 1.85 H, Est GFR ( Non-Af Amer) 41 L, BUN/Creatinine Ratio 20.5, Random Glucose 86, Calcium 8.4, Calcium Adj for Albumin 8.1 L, Total Bilirubin 1.4 H, AST 237 H, ALT 119 H, Alkaline Phosphatase 87, Total Protein 7.3, Albumin 4.0, Amylase 506 H, Lipase 7892 H, Ethyl Alcohol 23.0 H 04/06/19 21:38: Magnesium 1.7 04/06/19 21:55: Triglycerides 192 04/07/19 06:09: WBC 3.5 L D, RBC 3.13 L, Hgb 11.0 L, Hct 31.5 L, MCV 100.6 H, MCH 35.1 H, MCHC 34.9, RDW 14.7 H, Plt Count 36 L, MPV 10.8, Immature Gran % (Auto) 0.30, Immature Gran # (Auto) 0.01, Neutrophils % 67.2, Lymphocytes % 17.1 L, Monocytes % 14.8 H, Eosinophils % 0.3, Basophils % 0.3, Nucleated RBC % 0.0, Neutrophils # 2.3, Lymphocytes # 0.59 L, Monocytes # 0.5, Eosinophils # 0.0, Absolute Basophils 0.0 04/07/19 06:09: Sodium 140, Plasma Sodium 141, Potassium 3.6, Chloride 102, Carbon Dioxide 22.6 L, Anion Gap 19.0 H, BUN 35 H, Creatinine 1.71 H, Est GFR (Non-Af Amer) 45 L, BUN/Creatinine Ratio 20.5, Random Glucose 159 H D, Calcium 7.3 L, Calcium Adj for Albumin 7.5 L, Total Bilirubin 1.2 H, AST 201 H, ALT 95 H, Alkaline Phosphatase 75, Total Protein 6.4, Albumin 3.4, Amylase 358 H, Lipase 5313 H 04/07/19 07:07: Urine Color Yellow, Urine Appearance Clear, Urine pH 6.5, Ur Specific Oolitic 1.020, Urine Protein 30 H, Urine Glucose (UA) Negative, Urine Ketones 50, Urine Blood 50 H, Urine Nitrate Negative, Urine Bilirubin 1 H, Urine Ictotest Positive H, Prot Sulfosalicylic Acd 1+, Urine Urobilinogen Normal, Ur Leukocyte Esterase Negative, Urine RBC 0-5, Urine WBC None seen, Ur Epithelial Cells 0-5, Urine Bacteria 1+ H, Urine Culture Comments No culture indicated 04/07/19 07:50: Urine Opiates Screen Negative, Barbiturate Screen Negative, Ur Phencyclidine Scrn Negative, Urine Amphetamine Negative, U Benzodiazepines Scrn Negative, Urine Cocaine Screen Negative, Urine Marijuana (THC) Negative 04/08/19 05:55: WBC 4.8 D, RBC 3.26 L, Hgb 11.4 L, Hct 32.8 L, MCV 100.6 H, MCH 35.0 H, MCHC 34.8, RDW 14.5 H, Plt Count 28 L*, MPV 11.1, Immature Gran % (Auto) 0.20, Immature Gran # (Auto) 0.01, Neutrophils % 69.9, Neutrophils % (Manual) 62, Band Neuts % (Manual) 7 H, Lymphocytes % 19.1 L, Lymphocytes % (Manual) 18 L, Monocytes % 10.0 H, Monocytes % (Manual) 5, Eosinophils % 0.2, Eosinophils % (Manual) 1, Basophils % 0.6, Nucleated RBC % 0.0, Neutrophils # 3.4, Neutrophils # (Manual) 3.0, Lymphocytes # 0.92 L, Lymphocytes # (Manual) 0.9 L, Monocytes # 0.5, Monocytes # (Manual) 0.2, Eosinophils # 0.0, Eosinophils # (Manual) 0.0, Absolute Basophils 0.0, Atypic/Reactive Lymphs 7 H, Platelet Estimate Decreased L, Microcytosis 1+, Tear Drop Cells Trace, Schistocytes Trace 04/08/19 05:55: Absolute Retic 0.0398, Percent Retic 1.2, Immature Retic Fraction 7.5, Retic Hgb Content 40.5 H 04/08/19 06:00: Sodium 138, Plasma Sodium 139, Potassium 3.3 L, Chloride 103, Carbon Dioxide 26.6, Anion Gap 11.7, BUN 17 D, Creatinine 0.99, Est GFR (Non-Af Amer) 84 D, BUN/Creatinine Ratio 17.2, Random Glucose 148 H, Calcium 7.5 L, Ca lcium Adj for Albumin 8.1 L, Total Bilirubin 1.5 H, AST 212 H, ALT 87 H, Alkaline Phosphatase 81, Total Protein 5.8 L, Albumin 2.9 L, Amylase 202 H, Lipase 4267 H 04/08/19 06:23: Lactate Dehydrogenase 442 H, C-Reactive Prot, Quant 6.8 H 04/08/19 06:31: Peripheral Blood Smear Spec to path 04/08/19 06:41: Direct Antiglob Test Negative 04/08/19 06:41: Haptoglobin 123 04/08/19 : Hepatitis A IgM Ab Non-reactive, Hep Bs Antigen Non-reactive, Hep B Core IgM Ab Non-reactive, Hepatitis C Antibody Non-reactive, Hep C Ab Signal/Cutoff 0.01, Hepatitis Interpret Dnr 04/09/19 06:55: Sodium 138, Plasma Sodium 139, Potassium 3.3 L, Chloride 101, Carbon Dioxide 26.7, Anion Gap 13.6, BUN 8 D, Creatinine 0.74, Est GFR (Non-Af Amer) 117 D, BUN/Creatinine Ratio 10.8, Random Glucose 134 H, Calcium 8.0, Calcium Adj for Albumin 8.3 L, Total Bilirubin 1.8 H, AST 190 H, ALT 99 H, Alkaline Phosphatase 97, Total Protein 6.2, Albumin 3.2 L, Amylase 159 H, Lipase 2751 H 04/09/19 06:55: WBC 5.6, RBC 3.51 L, Hgb 12.6 L, Hct 34.0 L, MCV 96.9, MCH 35.9 H, MCHC 37.1 H, RDW 14.3 H, Plt Count 23 L*, MPV 11.7 H, Immature Gran % (Auto) 0.40, Immature Gran # (Auto) 0.02, Neutrophils % 66.3, Lymphocytes % 22.3, Monocytes % 10.4 H, Eosinophils % 0.2, Basophils % 0.4, Nucleated RBC % 0.0, Neutrophils # 3.7, Lymphocytes # 1.24 L, Monocytes # 0.6, Eosinophils # 0.0, Absolute Basophils 0.0 04/09/19 08:40: PTT (Kimberly) 30.4 04/09/19 08:42: Vitamin B12 1091 H, Folate 18.0 04/09/19 09:38: Fibrinogen 309 04/09/19 16:24: PT 10.4, INR (Anticoag Therapy) 1.05 04/10/19 05:35: WBC 6.2, RBC 3.35 L, Hgb 11.7 L, Hct 33.5 L, MCV 100.0, MCH 34.9 H, MCHC 34.9, RDW 14.6 H, Plt Count 67 L, MPV 11.7 H, Immature Gran % (Auto) 0.30, Immature Gran # (Auto) 0.02, Neutrophils % 59.5, Lymphocytes % 26.4, Monocytes % 12.5 H, Eosinophils % 1.0, Basophils % 0.3, Nucleated RBC % 0.0, Neutrophils # 3.7, Lymphocytes # 1.63, Monocytes # 0.8, Eosinophils # 0.1, Absolute Basophils 0.0 04/10/19 05:35: Sodium 137, Plasma Sodium 138, Potassium 3.5, Chloride 101, Carbon Dioxide 26.4, Anion Gap 13.1, BUN 6, Creatinine 0.73, Est GFR (Non-Af Amer) 119, BUN/Creatinine Ratio 8.2 L, Random Glucose 138 H, Calcium 8.3, Calcium Adj for Albumin 8.8, Total Bilirubin 1.4 H, AST 99 H, ALT 76 H, Alkaline Phosphatase 87, Total Protein 6.2, Albumin 3.0 L 04/11/19 05:20: WBC 5.6, RBC 3.09 L, Hgb 10.8 L, Hct 30.6 L, MCV 99.0, MCH 35.0 H, MCHC 35.3, RDW 14.4 H, Plt Count 75 L, MPV 11.7 H, Immature Gran % (Auto) 0.20, Immature Gran # (Auto) 0.01, Neutrophils % 50.8, Lymphocytes % 29.0, Monocytes % 18.2 H, Eosinophils % 1.3, Basophils % 0.5, Nucleated RBC % 0.0, Neutrophils # 2.8, Lymphocytes # 1.61, Monocytes # 1.0, Eosinophils # 0.1, Absolute Basophils 0.0 04/11/19 05:20: Sodium 136, Plasma Sodium 136, Potassium 3.7, Chloride 100, Carbon Dioxide 27.3, Anion Gap 12.4, BUN 12 D, Creatinine 0.81, Est GFR (Non-Af Amer) 106, BUN/Creatinine Ratio 14.8, Random Glucose 118 H, Calcium 8.4, Calcium Adj for Albumin 9.0, Total Bilirubin 1.4 H, AST 58 H, ALT 55, Alkaline Phosphatase 87, Total Protein 5.8 L, Albumin 2.8 L, Amylase 115, Lipase 1347 H 04/11/19 22:10: Hgb 10.4 L, Hct 29.6 L 04/11/19 22:27: Stool Occult Blood Positive H 04/12/19 03:55: Hgb 10.3 L, Hct 29.1 L 04/12/19 10:25: Hgb 10.3 L, Hct 29.3 L 04/12/19 10:25: Amylase 131 H 04/12/19 16:25: Hgb 10.5 L, Hct 30.0 L 04/13/19 05:40: WBC 4.3 D, RBC 2.66 L, Hgb 9.3 L, Hct 26.7 L, MCV 100.4 H, MCH 35.0 H, MCHC 34.8, RDW 14.6 H, Plt Count 123 L, MPV 10.8, Neutrophils % (Manual) 37 L, Band Neuts % (Manual) 2, Lymphocytes % (Manual) 48, Monocytes % (Manual) 6, Basophils % (Manual) 1, Immature Granulocytes 4 H, Neutrophils # (Manual) 1.6, Lymphocytes # (Manual) 2.1, Monocytes # (Manual) 0.3, Basophils # (Manual) 0.0, Atypic/Reactive Lymphs 2, Poikilocytosis 1+, Microcytosis 1+ 04/13/19 05:40: Sodium 139, Plasma Sodium 139, Potassium 3.6, Chloride 102, Carbon Dioxide 26.4, Anion Gap 14.2 H, BUN 19 D, Creatinine 0.87, Est GFR (Non- Af Amer) 97, BUN/Creatinine Ratio 21.8 H, Random Glucose 131 H, Calcium 8.8, Calcium Adj for Albumin 9.4, Total Bilirubin 0.7, AST 43, ALT 47, Alkaline Phosphatase 77, Total Protein 6.2, Albumin 2.9 L, Lipase 1596 H 04/13/19 : Absolute Retic 0.0844, Percent Retic 3.2 H, Immature Retic Fraction 17.0 H, Retic Hgb Content 40.6 H 04/14/19 05:30: WBC 4.6, RBC 2.58 L, Hgb 9.2 L, Hct 26.6 L, MCV 103.1 H, MCH 35.7 H, MCHC 34.6, RDW 14.4 H, Plt Count 170, MPV 11.0, Neutrophils % (Manual) 41 L, Band Neuts % (Manual) 1, Lymphocytes % (Manual) 36, Monocytes % (Manual) 5, Eosinophils % (Manual) 3, Basophils % (Manual) 1, Immature Granulocytes 4 H, Neutrophils # (Manual) 1.9, Lymphocytes # (Manual) 1.7, Monocytes # (Manual) 0.2, Eosinophils # (Manual) 0.1, Basophils # (Manual) 0.0, Atypic/Reactive Lymphs 9 H, Microcytosis 1+, Absolute Retic 0.0704, Percent Retic 2.7 H, Immature Retic Fraction 7.5, Retic Hgb Content 40.0 H 04/14/19 05:30: Sodium 140, Plasma Sodium 140, Potassium 3.7, Chloride 102, Carbon Dioxide 28.0, Anion Gap 13.7, BUN 21, Creatinine 0.91, Est GFR (Non-Af Amer) 92, BUN/Creatinine Ratio 23.1 H, Random Glucose 101, Calcium 9.6, Calcium Adj for Albumin 10.1, Total Bilirubin 0.6, AST 46, ALT 53, Alkaline Phosphatase 76, Total Protein 6.5, Albumin 3.0 L, Lipase 1391 H 04/15/19 05:33: WBC 5.4, RBC 2.72 L, Hgb 9.4 L, Hct 27.7 L, MCV 101.8 H, MCH 34.6 H, MCHC 33.9, RDW 14.1 H, Plt Count 197, MPV 10.4, Immature Gran % (Auto) 0.00 L, Immature Gran # (Auto) 0.00, Neutrophils % 33.9 L, Lymphocytes % 38.5, Monocytes % 26.0 H, Eosinophils % 0.7, Basophils % 0.9, Nucleated RBC % 0.0, Neutrophils # 1.8, Lymphocytes # 2.06, Monocytes # 1.4 H, Eosinophils # 0.0, Absolute Basophils 0.1, Absolute Retic 0.0672, Percent Retic 2.5 H, Immature Retic Fraction 9.0, Retic Hgb Content 40.0 H 04/15/19 05:33: Sodium 139, Plasma Sodium 139, Potassium 4.0, Chloride 101, Carbon Dioxide 27.9, Anion Gap 14.1 H, BUN 16, Creatinine 0.96, Est GFR (Non-Af Amer) 87, BUN/Creatinine Ratio 16.7, Random Glucose 105, Calcium 9.8, Calcium Adj for Albumin 10.2, Total Bilirubin 0.6, AST 46, ALT 54, Alkaline Phosphatase 82, Total Protein 6.7, Albumin 3.1 L Discharge Location: [facility] Disposition: SNF Condition: Stable Face to Face Encounter completed per CMS Guidelines: No Level of Care: SNF Discharge Activity: Activity as tolerated Discharge Diet: General/regular food Group Home Therapy: Physical Therapy Referrals: Ever Garcia DO [Primary Care Provider] - Prescriptions (Any new or edited meds): LORazepam [Ativan] 1 mg PO Q8H PRN 5 Days #15 tab PRN Reason: Alcohol Withdrawal Folic Acid 1 mg PO DAILY 30 Days #30 tab Complete Home Medications List: Complete Home Medication List: Atorvastatin Calcium 40 mg PO DAILY 11/30/18 Buspirone HCl 30 mg PO BID 11/30/18 Diphenoxylate HCl/Atrop Sulf [Lomotil] 2.5 mg PO QID PRN #40 tab 11/30/18 Fluticasone Propion/Salmeterol [Advair 500-50 Diskus] 1 puff INHALATION BID 11/30/18 Fluticasone Propionate [Flonase] 1 spray NS DAILY 11/30/18 Lisinopril [Prinivil] 10 mg PO DAILY 11/30/18 Montelukast Sodium [Singulair] 10 mg PO HS 11/30/18 Ondansetron [Zofran Odt] 4 mg PO Q6H PRN #20 tab 11/30/18 Pantoprazole Sodium 40 mg PO HS 11/30/18 traZODone HCL [Trazodone HCl] 400 mg PO HS 11/30/18 Folic Acid 1 mg PO DAILY 30 Days #30 tab 04/15/19 LORazepam [Ativan] 1 mg PO Q8H PRN 5 Days #15 tab 04/15/19
[2019-04-15] MEDS: NICOTINE 21 MG PATC TD SCH (14:29)
[2019-04-15] MEDS: traZODone HCL 150 MG TABLET PO SCH (21:28)
[2019-04-15] MEDS: MONTELUKAST SODIUM 10 MG TABLET PO SCH (21:29)
[2019-04-15] MEDS: traZODone HCL 50 MG TABLET PO SCH (21:29)
[2019-04-16] MEDS: PANTOPRAZOLE SODIUM 40 MG TABLET.EC PO SCH (06:24)
[2019-04-16] MEDS: FLUTICASONE PROPION/SALMETEROL 14 PUFF DISK.W.DEV IH SCH (06:25)
[2019-04-16] MEDS: busPIRone HCL 5 MG TABLET PO SCH (08:23)
[2019-04-16] MEDS: MULTIVITAMINS 1 CAP CAPSULE PO SCH (08:24)
[2019-04-16] MEDS: FOLIC ACID 1 MG TABLET PO SCH (08:24)
[2019-04-16] MEDS: DOCUSATE SODIUM 100 MG CAPSULE PO SCH (08:24)
[2019-04-16] MEDS: METOPROLOL TARTRATE 100 MG TABLET PO SCH (08:24)
[2019-04-16] MEDS: LISINOPRIL 10 MG TABLET PO SCH (08:24)
[2019-04-16] MEDS: CALCIUM CARBONATE 500 MG TAB.CHEW PO SCH (08:24)
[2019-04-16] MEDS: CYANOCOBALAMIN 1,000 MCG TABLET PO SCH (08:24)
[2019-04-16] MEDS: NEOMYCIN/BACITRACIN/POLYMYXINB 30 APPL TUBE TP SCH (08:27)
[2019-04-16] MEDS: FLUTICASONE PROPIONATE 120 SPRAY INHALER NS SCH (08:27)
[2019-04-16] MEDS: THIAMINE HCL 100 MG TABLET PO SCH (08:58)
[2019-04-16 10:05] VITALS: BP 122/82
== END 2019-04-16 11:45 | DRG 896 ==
LOC: ER 18:26 → MS 21:01
PROVIDERS: ADMIT Family Medicine; ATTEND Family Medicine
DX: K59.00 Constipation, unspecified; D69.6 Thrombocytopenia, unspecified; K85.90 Acute pancreatitis without necrosis or infection, unspecified; M06.9 Rheumatoid arthritis, unspecified; K70.30 Alcoholic cirrhosis of liver without ascites; F17.210 Nicotine dependence, cigarettes, uncomplicated; I12.9 Hypertensive chronic kidney disease with stage 1 through stage 4 chronic kidney disease, or unspecified chronic kidney disease; K62.5 Hemorrhage of anus and rectum; J44.9 Chronic obstructive pulmonary disease, unspecified; R11.2 Nausea with vomiting, unspecified; F10.231 Alcohol dependence with withdrawal delirium; N17.9 Acute kidney failure, unspecified; K29.20 Alcoholic gastritis without bleeding; R00.0 Tachycardia, unspecified; G31.2 Degeneration of nervous system due to alcohol; K85.20 Alcohol induced acute pancreatitis without necrosis or infection; N18.9 Chronic kidney disease, unspecified; N17.8 Other acute kidney failure; K70.40 Alcoholic hepatic failure without coma; R74.0 Nonspecific elevation of levels of transaminase and lactic acid dehydrogenase [LDH]; D64.9 Anemia, unspecified
CPT/HCPCS: 36415; 74000; 74018; 74019; 74020; 76700; 80053; 80074; 80307; 80320; 81001; 82150; 82272; 82607; 82746; 83010; 83615; 83690; 83735; 84478; 85007; 85014; 85018; 85025; 85045; 85060; 85384; 85610; 85730; 86023; 86140; 86880; 93005; 96361; 96365; 96367; 96375; 96376; 97110; 97116; 97161; 99285; G0481; J2405